=== PATIENT | male | born 1965 | race Caucasian/White ===

== ENCOUNTER 2021-09-18 17:29 | Emergency (ER) | payer MEDICAID, SELFPAY ==
[2021-09-18 17:32] VITALS: BP 176/98; PULSE 58; RESP 18; TEMP 36.4; O2SAT 97; BMI 33.5
--- NOTE | 2021-09-18 20:34 | ED.ABDPAIN ---
HPI - Abdominal Pain General Chief Complaint: Abdominal Pain Stated Complaint: abd pain Time Seen by Provider: 09/18/21 20:31 Source: patient Mode of arrival: ambulatory Limitations: no limitations History of Present Illness HPI narrative: Patient with No significant past medical history had heavy meal shrimps and pasta last night since then complaining of pain in epigastric area with vomiting and diarrhea patient daughter was also sick 2 days ago no fever or chills patient been vaccinated against COVID-19 no radiation of pain to the back no history of alcohol use no history of pancreatitis in the past Related Data Previous Rx's Medication Instructions Recorded ondansetron 4 mg disintegrating 4 mg PO Q6-8H PRN #7 tab 09/18/21 tablet Allergies Allergy/AdvReac Type Severity Reaction Status Date / Time No Known Allergies Allergy Unverified 07/27/20 15:00 [No Known Allergies*] Review of Systems Review of Systems Yes all other systems are reviewed and are negative Physical Exam Vital Signs: Vital Signs: Last Vital Signs Temp 98.9 F 09/18/21 22:31 Pulse 86 09/18/21 22:31 Resp 18 09/18/21 22:31 BP 127/81 09/18/21 22:31 Pulse Ox 98 09/18/21 22:31 Body Mass Index 33.5 Appearance: Alert. Oriented X3. No acute distress. Eyes: No pallor or icterus ENT: Pharynx normal. Oral Mucosa moist Neck: Normal inspection. Neck supple. CVS: Normal heart rate and rhythm. Pulses normal. Respiratory: No respiratory distress. Equal air entry bilateral, no wheezing/rales/rhonchi Abdomen: Soft , mild epigastric tenderness, Bowel sounds are present, no mass palpable, no CVA tenderness Skin: Skin warm and dry. Normal skin color. Normal skin turgor. Extremities: No lower extremity edema. No calf tenderness Neuro: Oriented X 3. MDM - Abdominal Pain Lab Data Attestation: I reviewed the patient's lab results. Result diagrams: 09/18/21 20:43 09/18/21 20:43 Labs: Lab Results 09/18/21 09/18/21 09/18/21 Range/Units 20:43 20:43 21:06 WBC 15.9 H (4.8-10.8) X10*3/uL RBC 5.52 (4.60-5.80) X10*6/uL Hgb 16.9 (14.0-18.0) g/dl Hct 49.8 (42.0-52.0) % MCV 90.2 (80.0-98.0) fL MCH 30.6 (27.0-33.0) pg MCHC 33.9 (31.0-36.0) g/dl RDW 12.4 (11.0-16.0) % Plt Count 264 (160-400) X10*3/uL MPV 10.9 (9.4-12.4) fL Immature Gran % (Auto) 0.4 (0.0-0.4) % Neut % (Auto) 78.1 H (45-73) % Lymph % (Auto) 14.6 L (20-40) % [place] % (Auto) 6.6 (2-11) % Eos % (Auto) 0.1 (0-4) % Baso % (Auto) 0.2 (0-2) % Lymph # (Auto) 2.3 (1.2-4.9) X10*3/uL [place] # (Auto) 1.1 (0.1-1.2) X10*3/uL Eos # (Auto) 0.0 (0.0-0.4) X10*3/uL Baso # (Auto) 0.0 (0.0-0.2) X10*3/uL Abs Immat Gran (auto) 0.07 H (0.00-0.03) X10*3/uL Absolute Neuts (auto) 12.4 H (2.0-8.3) x10*3/uL Absolute Nucleated RBC 0.000 (0.0-0.012) X10*3/uL Nucleated RBC % (auto) 0.0 (0.0-0.2) /100WBC Sodium 137 (135-145) mmol/L Potassium 4.1 (3.3-5.1) mmol/L Chloride 101 (96-108) mmol/L Carbon Dioxide 27 (22-29) mmol/L Anion Gap 13 (12-20) BUN 9 (9-16) mg/dL Creatinine 0.92 (0.5-1.4) mg/dL Estim Creat Clear Calc 87.8 Estimated GFR > 60 Random Glucose 121 H (60-115) mg/dL Calcium 10.0 (8.4-10.2) mg/dL Total Bilirubin 0.9 (0.0-1.0) mg/dL AST 14 (5-37) U/L ALT 29 (0-40) U/L Alkaline Phosphatase 83 (39-117) U/L Total Protein 8.2 H (6.5-8.0) g/dL Albumin 4.8 (3.5-5.0) g/dL Lipase 12 (8-78) U/L Urine Color DK YELLOW Urine Appearance HAZY Urine pH 6.0 (5.0-8.0) Ur Specific [place] >= 1.030 H (1.005-1.025) Urine Protein 1+ H (NEG-TRACE) MG/DL Urine Glucose (UA) NEG (NEG) MG/DL Urine Ketones NEG (NEG) MG/DL Urine Blood 1+ H (NEG) Urine Nitrite NEG (NEG) Ur Leukocyte Esterase NEG (NEG) Urine RBC 1-4 (0) /HPF Urine WBC 0 (0-4) /HPF Ur Squamous Epith Cells 3+ /LPF Amorphous Sediment 2+ /LPF Urine Bacteria 1+ /LPF Urine Mucus 4+ /LPF Discharge Plan Discharge Clinical Impression: Gastroenteritis Patient Disposition: Home, Self-Care Instructions: Gastroenteritis (ED) Additional Instructions: Drink plenty of fluids Medication for nausea as prescribed Follow-up with PCP if not better Prescriptions: New ondansetron 4 mg tablet,disintegrating 4 mg PO Q6-8H PRN (Reason: nausea and vomiting) Qty: 7 RF: 0 Interventions: ED Discharge Assessment Last Done: 09/18/21 22:32 Discharge Date/Time: 09/18/21 22:34 [facility] Past Medical History Medical History Back pain Hypertension Social History Social History Advance Directives: No Advance Directives Information Provided: Yes
[2021-09-18] MEDS: 0.9 % Sodium Chloride 1,000 ML 999 ML IVCONT (20:45)
[2021-09-18] MEDS: Famotidine/PF 20 MG/2 ML VIAL IVPUSH (20:48)
[2021-09-18] MEDS: ondansetron HCL 4 MG/2 ML VIAL IVPUSH (20:48)
[2021-09-18 20:51] VITALS: BP 136/75; PULSE 68; RESP 18; TEMP 37.4; O2SAT 97
[2021-09-18 20:51] LABS: MANUAL DIFF FLAG NO
[2021-09-18 20:52] LABS: Basophils Percent Auto 0.2 % (0-2); Eosinophils Percent Auto 0.1 % (0-4); Hematocrit 49.8 % (42.0-52.0); Hemoglobin 16.9 g/dl (14.0-18.0); Imm Gran Abs Auto 0.07 X10*3/uL (0.00-0.03); Imm Gran Pct Auto 0.4 % (0.0-0.4); Lymphocytes Absolute Auto 2.3 X10*3/uL (1.2-4.9); Lymphocytes Percent Auto 14.6 % (20-40); Mean Corpuscular HGB Conc 33.9 g/dl (31.0-36.0); Mean Corpuscular Hemoglobin 30.6 pg (27.0-33.0); Mean Corpuscular Volume 90.2 fL (80.0-98.0); Mean Platelet Volume 10.9 fL (9.4-12.4); Monocytes Absolute Auto 1.1 X10*3/uL (0.1-1.2); Monocytes Percent Auto 6.6 % (2-11); Neutrophils Absolute Auto 12.4 x10*3/uL (2.0-8.3); Neutrophils Percent Auto 78.1 % (45-73); Platelet Count 264 X10*3/uL (160-400); Red Blood Count 5.52 X10*6/uL (4.60-5.80); Red Cell Distribution Width 12.4 % (11.0-16.0); White Blood Count 15.9 X10*3/uL (4.8-10.8)
[2021-09-18 21:11] LABS: Alanine Aminotransferase 29 U/L (0-40); Albumin Level 4.8 g/dL (3.5-5.0); Alkaline Phosphatase 83 U/L (39-117); Anion Gap 13 (12-20); Aspartate Amino Transferase 14 U/L (5-37); Bilirubin Total 0.9 mg/dL (0.0-1.0); Blood Urea Nitrogen 9 mg/dL (9-16); Carbon Dioxide 27 mmol/L (22-29); Chloride 101 mmol/L (96-108); Creatinine Clr Calc Pharmacy 87.8; Estimated Glomerular Filt Rate > 60; Glucose Random 121 mg/dL (60-115); Lipase 12 U/L (8-78); Potassium 4.1 mmol/L (3.3-5.1); Sodium 137 mmol/L (135-145); Total Protein 8.2 g/dL (6.5-8.0)
[2021-09-18 21:12] LABS: Appearance Urine HAZY; Color Urine DK YELLOW; Glucose Urine UA NEG (NEG); Leukocyte Esterase Urine NEG (NEG); Nitrite Urine NEG (NEG); Specific Gravity - Urine >= 1.030 (1.005-1.025); UACC Culture Trigger NO; Urine Blood 1+ (NEG); Urine Ketones NEG (NEG); Urine Protein 1+ MG/DL (NEG-TRACE)
[2021-09-18 21:17] LABS: Amorphous Sediment Urine 2+ /LPF; Mucus Urine 4+ /LPF; Squamous Epithelial Cell Urine 3+ /LPF
[2021-09-18 21:18] LABS: Bacteria Urine 1+ /LPF; WBC Urine 0 /HPF (0-4)
[2021-09-18] MEDS: Magnesium Hydrox/Alum Hydrox 30 ML ORAL.SUSP PO (22:24)
--- NOTE | 2021-09-18 22:27 | PC.NURSE ---
Pt alert and oriented x4, calm and cooperative. Pt states pain has improved. No nausea/vomiting noted. IV removed. Pt educated on dc. Pt ambulated out of ER.
[2021-09-18 22:31] VITALS: BP 127/81; PULSE 86; RESP 18; TEMP 37.2; O2SAT 98
== END 2021-09-18 22:34 | disposition home or self-care (01) ==
PROVIDERS: Emergency Provider Internal Medicine
DX: K52.9 Noninfective gastroenteritis and colitis, unspecified (principal); R10.13 Epigastric pain; I10 Essential (primary) hypertension
CPT/HCPCS: 36415; 80053; 81001; 83690; 85025; 96361; 96374; 96375; 99284; J2405

== ENCOUNTER 2022-08-08 21:32 | Emergency (ER) | payer MEDICAID, SELFPAY ==
--- NOTE | ~2022-08-08 | CT_ITS ---
EXAMINATION: CT ABDOMEN AND PELVIS WITHOUT CONTRAST CLINICAL INFORMATION: Weight loss and vomiting COMPARISON: 09/20/2019 TECHNIQUE: Multidetector volumetric imaging was performed from the superior aspect of the liver through the pubic symphysis. Sagittal and coronal reformatted images were obtained on the technologist's workstation. This CT examination was performed using dose optimization techniques as appropriate, variously including the following: *Automated exposure control *Adjustment of mA and/or kV according to patient size (this includes techniques or standardized protocols for targeted exams where dose is matched to indication/reason for exam; i.e. extremities or head) *Use of iterative reconstruction technique DLP: 457 mGy-cm FINDINGS: LUNG BASES: The visualized lung bases are unremarkable. LIVER, GALLBLADDER, AND BILIARY TREE: The liver is normal in size, shape, and attenuation. No focal hepatic lesion or biliary ductal dilatation is present. Gallbladder unremarkable. PANCREAS: Unremarkable. SPLEEN: Unremarkable. ADRENAL GLANDS: Unremarkable. KIDNEYS AND URETERS: The kidneys are normal in size, shape, and attenuation. Bilateral benign renal cysts redemonstrated. No follow-up indicated. There is a 2 mm nonobstructive calculus right kidney, and a punctate calculus in the upper pole right kidney. Punctate calculus is present in the upper pole left kidney as well. No ureteral calculi. No hydronephrosis, hydroureter, or perinephric abnormality. BLADDER: Unremarkable. GASTROINTESTINAL TRACT: The small and large bowel are unremarkable. The appendix is unremarkable. ABDOMINAL WALL: No significant hernia is appreciated. LYMPH NODES: Normal. VASCULAR: Aorta is atherosclerotic but normal caliber. PELVIC VISCERA: Unremarkable. OSSEOUS STRUCTURES: Near-complete obliteration of the L5-S1 disc space. No acute or suspicious osseous abnormalities. CT/CT abdomen pelvis wo IV con IMPRESSION: No potential etiology for the patient's symptomatology. Bilateral nonobstructive intrarenal calculi
--- NOTE | 2022-08-08 21:33 | ECG_ITS ---
Test Reason : chest pain Blood Pressure : / mmHG Vent. Rate : 083 BPM Atrial Rate : 083 BPM P-R Int : 130 ms QRS Dur : 092 ms QT Int : 362 ms P-R-T Axes : 031 017 044 degrees QTc Int : 425 ms Normal sinus rhythm Possible Left atrial enlargement Borderline ECG When compared with ECG of 18-APR-2020 16:57, No significant change was found Referred By: Generic ED Physician Electronically Signed By:SMILEY JONES
[2022-08-08 21:34] VITALS: BP 136/91; PULSE 88; RESP 18; TEMP 37; O2SAT 99; BMI 30.9
[2022-08-08 21:45] LABS: MANUAL DIFF FLAG NO
[2022-08-08 21:47] LABS: Basophils Percent Auto 0.2 % (0-2); Hematocrit 48.1 % (42.0-52.0); Hemoglobin 16.2 g/dl (14.0-18.0); Imm Gran Abs Auto 0.09 X10*3/uL (0.00-0.03); Imm Gran Pct Auto 0.5 % (0.0-0.4); Lymphocytes Absolute Auto 2.5 X10*3/uL (1.2-4.9); Mean Corpuscular HGB Conc 33.7 g/dl (31.0-36.0); Mean Corpuscular Volume 89.1 fL (80.0-98.0); Mean Platelet Volume 10.4 fL (9.4-12.4); Monocytes Absolute Auto 1.5 X10*3/uL (0.1-1.2); Monocytes Percent Auto 8.1 % (2-11); Neutrophils Percent Auto 77.2 % (45-73); Platelet Count 287 X10*3/uL (160-400); Red Cell Distribution Width 12.4 % (11.0-16.0); White Blood Count 18.2 X10*3/uL (4.8-10.8)
[2022-08-08 22:02] LABS: Alanine Aminotransferase 22 U/L (0-40); Albumin Level 4.8 g/dL (3.5-5.0); Alkaline Phosphatase 79 U/L (39-117); Anion Gap 21 (12-20); Aspartate Amino Transferase 12 U/L (5-37); Bilirubin Direct 0.2 mg/dL (0.0-0.5); Bilirubin Total 0.7 mg/dL (0.0-1.0); Blood Urea Nitrogen 11 mg/dL (9-16); Calcium 10.1 mg/dL (8.4-10.2); Carbon Dioxide 22 mmol/L (22-29); Chloride 107 mmol/L (96-108); Creatinine Clr Calc Pharmacy 53.7; Estimated Glomerular Filt Rate 49; Glucose Random 107 mg/dL (60-115); Lipase 11 U/L (8-78); Potassium 3.6 mmol/L (3.3-5.1); Sodium 146 mmol/L (135-145); Total Protein 8.1 g/dL (6.5-8.0)
[2022-08-08 22:07] LABS: Troponin-I High Sensitivity < 3.5 ng/L (<3.5-35.0)
--- NOTE | 2022-08-09 00:01 | ED_ITS ---
HPI - Nausea/Vomiting/Diarrhea General Chief complaint: Chest Pain Stated complaint: cp Time Seen by Provider: 08/08/22 23:49 Source: patient Mode of arrival: ambulatory History of Present Illness HPI Narrative: Patient's history of heroin abuse snort uses only 1 or 2 bags a day. Taking for last 2 weeks been nauseated not eating much since then took 1 bag 1 week ago again feel nauseated does not feel hungry lost about 8 lb no focal abdominal pain today patient had multiple vomiting after eating some shrimp syncopized after vomiting. Having chills no fever Related Data Previous Rx's Medication Instructions Recorded ondansetron 4 mg disintegrating 4 mg PO Q6-8H PRN nausea and 09/18/21 tablet vomiting #7 tabs ondansetron 4 mg disintegrating 4 mg PO Q6-8H PRN Nausea And 08/09/22 tablet Vomiting #10 tabs Allergies Allergy/AdvReac Type Severity Reaction Status Date / Time No Known Allergies Allergy Unverified 07/27/20 15:00 [No Known Allergies*] Review of Systems Review of Systems: Yes all other systems are reviewed and are negative ON LICENSE OF [facility] Past Medical History Medical History Back pain Hypertension Social History Social History Advance Directives: No Advance Directives Information Provided: No Physical Exam Vital Signs: Vital Signs: Last Vital Signs Temp 99 F 08/09/22 02:00 Pulse 72 08/09/22 02:00 Resp 16 08/09/22 02:00 BP 124/76 08/09/22 02:00 Pulse Ox 99 08/09/22 02:00 O2 Del Method 08/09/22 02:00 BMI result Body Mass Index 30.9 Appearance: Alert. Oriented X3. No acute distress. Eyes: PERRLA, No Nystagmus ENT: Pharynx normal. Oral Mucosa dry Neck: Normal inspection. Neck supple. CVS: Normal heart rate and rhythm. Pulses normal. Respiratory: No respiratory distress. Equal air entry bilateral, no wheezing/rales/rhonchi Abdomen: Soft , No focal tenderness or rebound tenderness or guarding Bowel sounds are present, no mass palpable, no CVA tenderness Skin: Skin warm and dry. Normal skin color. Normal skin turgor. Extremities: No lower extremity edema. No calf tenderness Neuro: Oriented X 3. No motor deficit. No sensory deficit.No cerebellar signs , cranial nerves II-XII intact MDM - Nausea/Vomiting/Diarrhea MDM Narrative Medical decision making narrative: Patient with poor oral intake with leukocytosis no source of infection likely from dehydration patient received IV fluids taking p.o. fluids feeling much better CT scan abdomen negative patient advised to follow with PCP for LUMA and recheck on WBC count and report to the ER if high fever or chills Lab Data Attestation: I reviewed the patient's lab results. Result diagrams: 08/08/22 21:40 08/08/22 21:40 Labs: Lab Results 08/08/22 08/08/22 08/08/22 Range/Units 21:40 21:40 21:40 WBC 18.2 H (4.8-10.8) X10*3/uL RBC 5.40 (4.60-5.80) X10*6/uL Hgb 16.2 (14.0-18.0) g/dl Hct 48.1 (42.0-52.0) % MCV 89.1 (80.0-98.0) fL MCH 30.0 (27.0-33.0) pg MCHC 33.7 (31.0-36.0) g/dl RDW 12.4 (11.0-16.0) % Plt Count 287 (160-400) X10*3/uL MPV 10.4 (9.4-12.4) fL Immature Gran % (Auto) 0.5 H (0.0-0.4) % Neut % (Auto) 77.2 H (45-73) % Lymph % (Auto) 14.0 L (20-40) % [place] % (Auto) 8.1 (2-11) % Eos % (Auto) 0.0 (0-4) % Baso % (Auto) 0.2 (0-2) % Lymph # (Auto) 2.5 (1.2-4.9) X10*3/uL [place] # (Auto) 1.5 H (0.1-1.2) X10*3/uL Eos # (Auto) 0.0 (0.0-0.4) X10*3/uL Baso # (Auto) 0.0 (0.0-0.2) X10*3/uL Abs Immat Gran (auto) 0.09 H (0.00-0.03) X10*3/uL Absolute Neuts (auto) 14.0 H (2.0-8.3) x10*3/uL Absolute Nucleated RBC 0.000 (0.0-0.012) X10*3/uL Nucleated RBC % (auto) 0.0 (0.0-0.2) /100WBC Sodium 146 H (135-145) mmol/L Potassium 3.6 (3.3-5.1) mmol/L Chloride 107 (96-108) mmol/L Carbon Dioxide 22 (22-29) mmol/L Anion Gap 21 H (12-20) BUN 11 (9-16) mg/dL Creatinine 1.48 H (0.5-1.4) mg/dL Estim Creat Clear Calc 53.7 Estimated GFR 49 Random Glucose 107 (60-115) mg/dL Calcium 10.1 (8.4-10.2) mg/dL Total Bilirubin 0.7 (0.0-1.0) mg/dL Direct Bilirubin 0.2 (0.0-0.5) mg/dL AST 12 (5-37) U/L ALT 22 (0-40) U/L Alkaline Phosphatase 79 (39-117) U/L Troponin I High Sens < 3.5 (<3.5-35.0) ng/L Total Protein 8.1 H (6.5-8.0) g/dL Albumin 4.8 (3.5-5.0) g/dL Lipase 11 (8-78) U/L Discharge Plan Discharge Clinical Impression: Acute nausea with nonbilious vomiting Patient Disposition: Home, Self-Care Instructions: Acute Nausea and Vomiting (ED) Additional Instructions: Drink plenty of fluids Nausea medication as prescribed Follow with PCP if not better Prescriptions: New ondansetron 4 mg tablet,disintegrating 4 mg PO Q6-8H PRN (Reason: Nausea And Vomiting) Qty: 10 0RF No Action ondansetron 4 mg tablet,disintegrating 4 mg PO Q6-8H PRN (Reason: nausea and vomiting) Qty: 7 0RF Interventions: ED Discharge Assessment Last Done: 09/30/22 02:34 Discharge Date/Time: 08/09/22 02:35
[2022-08-09 00:08] VITALS: BP 147/91; PULSE 80; RESP 17; TEMP 37.1; O2SAT 100
[2022-08-09] MEDS: 0.9 % Sodium Chloride 1,000 ML 999 ML IV (01:17)
[2022-08-09] MEDS: ondansetron HCL 4 MG/2 ML VIAL IVPUSH (01:17)
[2022-08-09] MEDS: Famotidine/PF 20 MG/2 ML VIAL IVPUSH (01:17)
[2022-08-09 02:00] VITALS: BP 124/76; PULSE 72; RESP 16; TEMP 37.2; O2SAT 99
== END 2022-08-09 02:35 | disposition home or self-care (01) ==
PROVIDERS: Emergency Provider Internal Medicine
DX: R07.89 Other chest pain (principal); R11.2 Nausea with vomiting, unspecified; Z79.899 Other long term (current) drug therapy
CPT/HCPCS: 36415; 74176; 80053; 82248; 83690; 84484; 85025; 93005; 96374; 96375; 99284; J2405

== ENCOUNTER 2022-09-25 07:02 | Emergency (ER) | payer MEDICAID, SELFPAY ==
--- NOTE | ~2022-09-25 | CT_ITS ---
EXAMINATION: CT abdomen pelvis wo IV con CLINICAL INFORMATION: Reason for Exam Right flank, RLQ pain, R/O appy, kidney stone COMPARISON: Multiple prior CTs most recent July 2022 TECHNIQUE: Multidetector volumetric imaging was performed from the superior aspect of the liver through the pubic symphysis noncontrasted study. Sagittal and coronal reformatted images were obtained on the technologist's workstation. This CT examination was performed using dose optimization techniques as appropriate, variously including the following: *Automated exposure control *Adjustment of mA and/or kV according to patient size (this includes techniques or standardized protocols for targeted exams where dose is matched to indication/reason for exam; i.e. extremities or head) *Use of iterative reconstruction technique DLP: 490 mGy-cm FINDINGS: LOWER THORAX: Included lung bases are clear. HEPATOBILIARY: Liver is homogeneous, evaluation of the liver is limited on noncontrast CT, top normal in size measure up to 22.4 cm. GALLBLADDER: Gallbladder unremarkable. SPLEEN: Spleen is normal in size. PANCREAS: No focal mass or ductal dilatation. STOMACH AND GASTROINTESTINAL TRACT: Stomach is grossly unremarkable. There is no bowel distention or thickening. No CT evidence of appendicitis. ADRENALS: No adrenal nodules. KIDNEYS/URETERS: There is moderate to severe right renal hydronephrosis and hydroureter, there is 3 mm obstructing stone at the right ureteral vesicular junction. Mild perinephric fat stranding around the right kidney suggesting high degree obstruction. In addition there are bilateral tiny nonobstructing kidney stones 2 mm nonobstructing stone upper calyx right kidney, 3 mm nonobstructing stone upper calyx left kidney, URINARY BLADDER: Partially decompressed. PELVIC VISCERA: Bilateral small inguinal hernias containing fat only. No bowels, PERITONEUM: No free air or fluid. LYMPH NODES: No lymphadenopathy. VASCULAR:Abdominal aorta normal in size, no aneurysm found. BONES, ABDOMINAL WALL AND SOFT TISSUES: Age-appropriate changes of the spine and skeletal system, no destructive osteolytic or osteosclerotic bone lesion found CT/CT abdomen pelvis wo IV con IMPRESSION: 1. Moderate to severe right renal hydronephrosis and hydroureter, there is a 3 mm obstructing stone at the right UVJ junction. Mild perinephric fat stranding around the right kidney suggesting high degree obstruction. 2. Bilateral tiny nonobstructing kidney stones. 3. Bilateral small inguinal hernias containing fat only.
[2022-09-25 07:09] VITALS: BP 191/100; PULSE 59; RESP 18; TEMP 36.3; O2SAT 99; BMI 31.8
[2022-09-25 07:58] LABS: MANUAL DIFF FLAG NO
[2022-09-25 08:05] LABS: Basophils Absolute Auto 0.1 X10*3/uL (0.0-0.2); Basophils Percent Auto 0.4 % (0-2); Eosinophils Absolute Auto 0.1 X10*3/uL (0.0-0.4); Eosinophils Percent Auto 0.3 % (0-4); Hematocrit 49.2 % (42.0-52.0); Hemoglobin 16.3 g/dl (14.0-18.0); Imm Gran Abs Auto 0.11 X10*3/uL (0.00-0.03); Imm Gran Pct Auto 0.6 % (0.0-0.4); Lymphocytes Absolute Auto 2.7 X10*3/uL (1.2-4.9); Lymphocytes Percent Auto 14.8 % (20-40); Mean Corpuscular HGB Conc 33.1 g/dl (31.0-36.0); Mean Corpuscular Hemoglobin 30.2 pg (27.0-33.0); Mean Corpuscular Volume 91.1 fL (80.0-98.0); Mean Platelet Volume 10.9 fL (9.4-12.4); Monocytes Absolute Auto 1.4 X10*3/uL (0.1-1.2); Monocytes Percent Auto 7.5 % (2-11); Neutrophils Absolute Auto 13.9 x10*3/uL (2.0-8.3); Neutrophils Percent Auto 76.4 % (45-73); Platelet Count 272 X10*3/uL (160-400); White Blood Count 18.2 X10*3/uL (4.8-10.8)
[2022-09-25 08:06] LABS: Appearance Urine Clear; Color Urine Yellow; Glucose Urine UA 100 mg/dL (Negative); Leukocyte Esterase Urine Negative (Negative); Nitrite Urine Negative (Negative); PH 6.5 (5.0-9.0); UMIC TRIGGER UACC YES; Urine Blood Large (3+) (Negative); Urine Ketones Negative (Negative); Urine Protein Trace mg/dL (Neg-Trace)
[2022-09-25 08:18] LABS: Bacteria Urine None Seen (None Seen); Hyaline Casts Urine 0-2 /LPF (0-2); RBC Urine >20 /HPF (0-2); Squamous Epithelial Cell Urine 0-2 /HPF (0-2); WBC Urine 0-5 /HPF (0-5)
[2022-09-25] MEDS: ondansetron HCL 4 MG/2 ML VIAL IVPUSH (08:18)
[2022-09-25 08:27] LABS: Alanine Aminotransferase 23 U/L (0-40); Albumin Level 4.4 g/dL (3.5-5.0); Alkaline Phosphatase 86 U/L (39-117); Anion Gap 17 (12-20); Aspartate Amino Transferase 16 U/L (5-37); Bilirubin Direct < 0.2 mg/dL (0.0-0.5); Bilirubin Total 0.3 mg/dL (0.0-1.0); Blood Urea Nitrogen 14 mg/dL (9-16); Carbon Dioxide 24 mmol/L (22-29); Chloride 106 mmol/L (96-108); Creatinine Clr Calc Pharmacy 77.1; Estimated Glomerular Filt Rate > 60; Glucose Random 108 mg/dL (60-115); Lipase 13 U/L (8-78); Potassium 4.1 mmol/L (3.3-5.1); Sodium 143 mmol/L (135-145); Total Protein 7.7 g/dL (6.5-8.0)
--- NOTE | 2022-09-25 08:32 | ED_ITS ---
HPI - Abdominal Pain General Chief Complaint: Abdominal Pain Stated Complaint: pain in side Time Seen by Provider: 09/25/22 07:48 Source: patient Mode of arrival: ambulatory Limitations: language barrier (Patient speaks [place] only, high school guidance counselor used) History of Present Illness HPI narrative: 56-year-old male who presents emergency department for evaluation of right- sided flank pain and right lower quadrant pain. The patient states the pain started suddenly 2 days prior. He states that the pain is an intermittent throbbing pain. He states that the pain is 10/10 at its worst. Patient states that he had nausea with 1 episode of vomiting today. He denied fever, chills, rhinorrhea, sore throat, cough, chest pain. This is the patient's 1st episode of this type of pain. MD elicited complaint: abdominal pain Pertinent past history: none Onset (ago): day(s) (2) Pain Consistency: intermittent Location: RLQ and R flank Severity: severe Pain scale (0-10): 10 Quality: other (Throbbing) Radiation: none Migration to: no migration Exacerbating factors: nothing Relieving factors: nothing Associated symptoms: nausea and vomiting Related Data Previous Rx's Medication Instructions Recorded ondansetron 4 mg disintegrating 4 mg PO Q6-8H PRN nausea and 09/18/21 tablet vomiting #7 tabs ondansetron 4 mg disintegrating 4 mg PO Q6-8H PRN Nausea And 08/09/22 tablet Vomiting #10 tabs morphine 15 mg immediate release 15 mg PO Q4-6H PRN pain #14 tabs 09/25/22 tablet tamsulosin 0.4 mg capsule (Flomax) 0.4 mg PO DAILY #14 caps 09/25/22 Allergies Allergy/AdvReac Type Severity Reaction Status Date / Time No Known Allergies Allergy Unverified 07/27/20 15:00 [No Known Allergies*] Review of Systems Review of Systems Yes all other systems are reviewed and are negative [facility] Past Medical History [facility] Narrative: Past medical history: Reviewed below, anxiety. Past surgical history: None. Past social history: The patient states that he smokes 6-10 cigarettes per year for 43 years. Patient states he occasionally drinks alcohol. The patient does use heroin, he states that he uses it intranasally and last used 2 weeks prior. He states that when he uses he often inhalers 1 bag. Medical History Back pain Hypertension Social History Social History Advance Directives: No Physical Exam ED Vital Signs: Vital Signs - 24 hr 09/25/22 07:09 09/25/22 10:29 Temperature 97.4 F 98.8 F Pulse Rate 59 63 Respiratory Rate 18 18 Blood Pressure 191/100 H 169/82 H Pulse Oximetry 99 96 Oxygen Delivery Method Room Air Room Air BMI result Body Mass Index 31.8 Const General: cooperative and no acute distress Orientation/consciousness: oriented to person and oriented to place Limitations: no limitations HENMT Head: Yes normal to inspection, Yes normocephalic and Yes atraumatic Ears: external ears normal General nose exam: Normal external nose present Face and sinus: Yes normal facial exam Mouth: Normal oral and palatal mucosa present Throat: Yes posterior oropharynx normal Eyes General: appearance normal, both eyes and all related structures Pupils: Equal, round and reactive pupils present Neck Neck: Yes normal visual inspection, Yes no lymphadenopathy, Yes trachea midline and Yes supple Chest Chest palpation & inspection: normal inspection of the chest and normal palpation of entire chest wall Resp Effort & Inspection: normal respiratory effort and able to speak in complete sentences Auscultation: clear to auscultation bilaterally Cardio Rate: regular rate Rhythm: regular rhythm Heart sounds: S1 normal heart sound present, S2 normal heart sound present and no murmurs GI Inspection: Yes normal to inspection Palpation (GI): Soft to palpation, Tenderness to palpation present (GI) in the RLQ (Moderate) and no guarding Auscultation: normal bowel sounds General: Yes CVA tenderness on the right (Moderate) Back/Spine/Pelvis Back: CVA tenderness Skin General skin exam: no rashes or lesions noted Neuro General: oriented to person and oriented to place Cranial nerves: Yes CN's II-XII intact bilaterally and Yes Equal, round and reactive pupils present Cognition (Neuro): normal cognition Motor exam (neuro): 5/5 motor strength present throughout Extrem General: Yes normal to inspection Psych Appearance: grossly normal Speech and movement: Normal speech and movement present Affect: normal affect Attitude: cooperative Thought process: Normal thought process present Thought content: Normal thought content present Course Course Course Narrative: 56-year-old male who presents emergency department for evaluation of 2 days of right flank and right lower quadrant pain, the pain is intermittent, pain came on suddenly was severe at onset and the pain has been 10/10. The patient's blood pressure was elevated at 190 1/100, this is most likely secondary to pain. Patient's physical examination did reveal moderate right CVA tenderness and moderate right lower quadrant tenderness. I did order laboratory evaluation, CT scan of the abdomen pelvis without IV contrast. Patient's pain was treated with Toradol 15 mg IV and his nausea was treated with Zofran 4 mg IV. 0949: Patient's laboratory evaluation [place] [address], he has had similar elevations in the past, this could be secondary to his pain. Urinalysis was positive for blood microscopic revealed greater than 20 RBCs per high-power field. Patient's pain improved initially with the above treatment, he required a 2nd dose of Toradol 15 mg IV. 1106: Patient's pain however return to then required another dose of morphine [address] scan did reveal a 3 mm right ureteral stone at the UVJ causing obstruction. Patient had other incidental findings including bilateral kidney stones and bilateral swelling will hernias. I did discuss these findings with the patient. The patient will be discharged home . He is advised to take Tylenol ibuprofen for pain and for pain not relieved by these medications was prescribed morphine. He was also started on Flomax. Patient will need to follow-up with our urologist. Medications Administered Discontinued Medications Generic Name Dose Route Start Last Admin Trade Name Freq PRN Reason Stop Dose Admin Sodium Chloride 1,000 mls @ 999 mls/hr 09/25/22 08:22 09/25/22 08:35 Ns IV 09/25/22 09:22 999 mls/hr .Q1H1M STA Administration Ketorolac Tromethamine 15 mg 09/25/22 08:22 09/25/22 08:35 Ketorolac Tromethamine 15 Mg/Ml Vial IVPUSH 09/25/22 08:23 15 mg ONCE STA Administration Ketorolac Tromethamine 15 mg 09/25/22 09:43 09/25/22 10:00 Ketorolac Tromethamine 15 Mg/Ml Vial IVPUSH 09/25/22 09:44 15 mg ONCE STA Administration Ondansetron HCl 4 mg 09/25/22 08:12 09/25/22 08:18 Ondansetron Hcl 4 Mg/2 Ml Vial IVPUSH 09/25/22 08:13 4 mg ONCE ONE Administration Ondansetron HCl 4 mg 09/25/22 08:22 09/25/22 08:36 Ondansetron Hcl 4 Mg/2 Ml Vial IVPUSH 09/25/22 08:23 Not Given ONCE ONE MDM - Abdominal Pain Lab Data Result diagrams: 09/25/22 07:52 09/25/22 07:52 Labs: Lab Results 09/25/22 09/25/22 09/25/22 Range/Units 07:52 07:52 07:52 WBC 18.2 H (4.8-10.8) X10*3/uL RBC 5.40 (4.60-5.80) X10*6/uL Hgb 16.3 (14.0-18.0) g/dl Hct 49.2 (42.0-52.0) % MCV 91.1 (80.0-98.0) fL MCH 30.2 (27.0-33.0) pg MCHC 33.1 (31.0-36.0) g/dl RDW 13.0 (11.0-16.0) % Plt Count 272 (160-400) X10*3/uL MPV 10.9 (9.4-12.4) fL Immature Gran % (Auto) 0.6 H (0.0-0.4) % Neut % (Auto) 76.4 H (45-73) % Lymph % (Auto) 14.8 L (20-40) % [place] % (Auto) 7.5 (2-11) % Eos % (Auto) 0.3 (0-4) % Baso % (Auto) 0.4 (0-2) % Lymph # (Auto) 2.7 (1.2-4.9) X10*3/uL [place] # (Auto) 1.4 H (0.1-1.2) X10*3/uL Eos # (Auto) 0.1 (0.0-0.4) X10*3/uL Baso # (Auto) 0.1 (0.0-0.2) X10*3/uL Abs Immat Gran (auto) 0.11 H (0.00-0.03) X10*3/uL Absolute Neuts (auto) 13.9 H (2.0-8.3) x10*3/uL Absolute Nucleated RBC 0.000 (0.0-0.012) X10*3/uL Nucleated RBC % (auto) 0.0 (0.0-0.2) /100WBC Sodium 143 (135-145) mmol/L Potassium 4.1 (3.3-5.1) mmol/L Chloride 106 (96-108) mmol/L Carbon Dioxide 24 (22-29) mmol/L Anion Gap 17 (12-20) BUN 14 (9-16) mg/dL Creatinine 1.01 (0.5-1.4) mg/dL Estim Creat Clear Calc 77.1 Estimated GFR > 60 Random Glucose 108 (60-115) mg/dL Calcium 10.0 (8.4-10.2) mg/dL Total Bilirubin 0.3 (0.0-1.0) mg/dL Direct Bilirubin < 0.2 (0.0-0.5) mg/dL AST 16 (5-37) U/L ALT 23 (0-40) U/L Alkaline Phosphatase 86 (39-117) U/L Total Protein 7.7 (6.5-8.0) g/dL Albumin 4.4 (3.5-5.0) g/dL Lipase 13 (8-78) U/L Urine Color Yellow Urine Appearance Clear Urine pH 6.5 (5.0-9.0) Ur Specific [place] 1.020 (1.005-1.025) Urine Protein Trace (Neg-Trace) mg/dL Urine Glucose (UA) 100 H (Negative) mg/dL Urine Ketones Negative (Negative) mg/dL Urine Blood Large (3+) H (Negative) Urine Nitrite Negative (Negative) Ur Leukocyte Esterase Negative (Negative) Urine RBC >20 H (0-2) /HPF Urine WBC 0-5 (0-5) /HPF Ur Squamous Epith Cells 0-2 (0-2) /HPF Urine Bacteria None Seen (None Seen) Hyaline Casts 0-2 (0-2) /LPF Discharge Plan Discharge Clinical Impression: Colic, ureteral, Right distal ureteral calculus, Calculus of both kidneys Patient Disposition: Home, Self-Care Instructions: Kidney Stones (ED), How to Strain Your Urine (ED) Additional Instructions: The CT scan of your abdomen pelvis without IV contrast revealed a 3 mm stone in the right ureter (i the tube that connects the kidney to the bladder). This stone is very close the bladder and you have almost passed it. It sometimes takes several weeks to pass the stone. Drink lots of water and urinate frequently. Strain your urine to see if you can catch the stone Take Flomax (tamsulosin) 0.4 mg once a day for the next 2 weeks or until you pass the stone. This medication helps relax the ureter and may help you pass the stone sooner. Take ibuprofen 200 mg pills, 3 pills every 6 hours as needed for pain. Take Tylenol (acetaminophen) 500 mg, 2 pills every 4-6 hours as needed for pain. For pain not relieved by ibuprofen or Tylenol take morphine 15 mg pills, 1 pill every 4 hours as needed for pain. This medication will make you sleepy, do not drive or work while taking this medication. Morphine is a narcotic medication and can be addicting. If you are concerned about addiction you can ask the pharmacist for less pills or do not get this prescription filled. Follow-up with our urologist on-call within 1-2 weeks Please return to the emergency department if your symptoms get worse or if you develop any symptoms that are concerning to you. Prescriptions: New tamsulosin [Flomax] 0.4 mg capsule 0.4 mg PO DAILY Qty: 14 0RF morphine 15 mg tablet 15 mg PO Q4-6H PRN (Reason: pain) Qty: 14 0RF Rx Instructions: Patient may request partial fill; Partial Fill upon patient request. No Action ondansetron 4 mg tablet,disintegrating 4 mg PO Q6-8H PRN (Reason: nausea and vomiting) Qty: 7 0RF ondansetron 4 mg tablet,disintegrating 4 mg PO Q6-8H PRN (Reason: Nausea And Vomiting) Qty: 10 0RF Referrals: Samir Caraballo MD [Physician] - 2 weeks (3 mm obstructing right UVJ calculus, multiple bilateral renal calculi)
[2022-09-25] MEDS: 0.9 % Sodium Chloride 1,000 ML 999 ML IV (08:35)
[2022-09-25] MEDS: Ketorolac Tromethamine 15 MG/ML VIAL IVPUSH ×2 (08:35→10:00)
[2022-09-25 10:29] VITALS: BP 169/82; PULSE 63; RESP 18; TEMP 37.1; O2SAT 96
[2022-09-25] MEDS: Morphine Sulfate 4 MG/ML CARTRIDGE IVPUSH (11:18)
[2022-09-25 11:49] VITALS: BP 144/71; PULSE 77; RESP 19; O2SAT 98
== END 2022-09-25 11:53 | disposition home or self-care (01) ==
PROVIDERS: Emergency Provider Emergency Medicine Emergency Medical Services
DX: N13.2 Hydronephrosis with renal and ureteral calculous obstruction (principal); K40.20 Bilateral inguinal hernia, without obstruction or gangrene, not specified as recurrent; R11.2 Nausea with vomiting, unspecified; I10 Essential (primary) hypertension; F17.210 Nicotine dependence, cigarettes, uncomplicated
CPT/HCPCS: 36415; 74176; 80048; 80076; 81001; 81003; 83690; 85025; 96374; 96375; 96376; 99284; J1885; J2270; J2405

== ENCOUNTER 2022-11-14 19:42 | Emergency (ER) | payer MEDICAID, SELFPAY ==
--- NOTE | ~2022-11-14 | XR_ITS ---
EXAMINATION: XR CHEST CLINICAL INFORMATION: Cough. COMPARISON: Chest radiograph 04/18/2020. TECHNIQUE: 2 views of the chest were obtained. FINDINGS: Normal appearance of the cardiomediastinal silhouette. No focal airspace opacity, pleural effusion or pneumothorax. No acute osseous abnormalities. The visualized upper abdomen is within normal limits. XR/XR chest 2V IMPRESSION: No acute cardiopulmonary findings.
[2022-11-14 20:35] VITALS: BP 186/113; PULSE 67; RESP 18; TEMP 36.7; O2SAT 98; BMI 30.1
--- NOTE | 2022-11-14 20:45 | ED_ITS ---
HPI - General Adult General Source: patient Mode of arrival: ambulatory Limitations: no limitations History of Present Illness HPI narrative: 56-year-old male presents with 1 week of headache, fever, vomiting and body aches. Onset (ago): week(s) (1) Radiation: non-radiation Severity: moderate Associated symptoms: cough, fever/chills, headaches, malaise, nausea/vomiting and weakness Treatments prior to arrival: none Related Data Previous Rx's Medication Instructions Recorded ondansetron 4 mg disintegrating 4 mg PO Q6-8H PRN nausea and 09/18/21 tablet vomiting #7 tabs ondansetron 4 mg disintegrating 4 mg PO Q6-8H PRN Nausea And 08/09/22 tablet Vomiting #10 tabs morphine 15 mg immediate release 15 mg PO Q4-6H PRN pain #14 tabs 09/25/22 tablet tamsulosin 0.4 mg capsule (Flomax) 0.4 mg PO DAILY #14 caps 09/25/22 lisinopril 5 mg tablet 5 mg PO DAILY #30 tabs 11/15/22 prednisone 20 mg tablet 20 mg PO DAILY 7 days #7 tabs 11/19/22 tamsulosin 0.4 mg capsule (Flomax) 0.4 mg PO DAILY #14 caps 11/19/22 Allergies Allergy/AdvReac Type Severity Reaction Status Date / Time No Known Allergies Allergy Unverified 07/27/20 15:00 [No Known Allergies*] Review of Systems Review of Systems: Constitutional: positive Fever, positive Chills, positive fatigue, positive Malaise ENT/Mouth: positive sore throat, positive runny nose Eyes: No Discharge Cardiovascular: No Chest Pain, No SOB Respiratory: Positive Cough, No Sputum, No Wheezing, No Dyspnea Gastrointestinal: No Nausea, No Vomiting, No Diarrhea Musculoskeletal: positive Myalgia Skin: No rash Neuro: Positive Headache Yes all other systems are reviewed and are negative PMFSH Past Medical History Attestation statement: The following information was validated with the patient. Source: old records reviewed Medical History Back pain Hypertension Social History Social History Advance Directives: No Advance Directives Information Provided: Yes Physical Exam ED Vital Signs: Vital Signs - 24 hr 11/14/22 20:35 11/14/22 23:13 11/14/22 23:25 Temperature 98.0 F 99.1 F 99.4 F Pulse Rate 67 61 65 Respiratory Rate 18 16 14 Blood Pressure 186/113 H 199/112 H 172/109 H Pulse Oximetry 98 98 99 Oxygen Delivery Method Room Air Room Air Room Air 11/15/22 00:51 Temperature 99.3 F Pulse Rate 64 Respiratory Rate 16 Blood Pressure 179/106 H Pulse Oximetry 97 Oxygen Delivery Method Room Air BMI result Body Mass Index 30.1 Appearance: Alert. Oriented X3. Mild distress. Appears fatigued. Eyes: Pupils equal, round and reactive to light. ENT: Pharynx normal. Neck: Normal inspection. Neck supple. CVS: Normal heart rate and rhythm. Pulses normal. Respiratory: No respiratory distress. Breath sounds normal. Abdomen: Soft and nontender. Skin: Skin warm and dry. Normal skin color. Normal skin turgor. Extremities: No lower extremity edema. Gait well-balanced well coordinated. Neuro: No motor deficit. No sensory deficit. Cranial nerves 2-12 intact. Course Course Course Narrative: 56-year-old male presents for 1 week of upper respiratory symptoms, headache, fever, vomiting, and body aches. Patient tested positive for COVID while in the emergency department waiting room. Patient was provided with Tylenol and Zofran. Patient does have an elevated blood pressure, states that he has had chronically elevated blood pressure for years, does not have a primary care physician and is not on any medications. 00:49 plan of care to discharge home. Will give lisinopril 5 mg for elevated blood pressure, patient has had chronic blood pressure elevation but does not have primary care physician. Will refer to Dr. Ortiz so patient can establish PCP. Patient did ask for stronger medications and Tylenol and Motrin, which I respectfully declined his request. Patient did understand that narcotics are not indicated for viral syndrome. Patient verbalized understanding of and agrees to plan of care discharge home. Verbalized understanding of signs symptoms indicating need for emergent intervention. Medications Administered Discontinued Medications Generic Name Dose Route Start Last Admin Trade Name Freq PRN Reason Stop Dose Admin Acetaminophen 650 mg 11/14/22 23:31 11/14/22 23:37 Acetaminophen 325 Mg Tablet PO 11/14/22 23:32 650 mg ONCE ONE Administration Ondansetron HCl 4 mg 11/14/22 20:45 11/14/22 23:26 Ondansetron Odt 4 Mg Tab.Umudis TRANSLINGU 11/14/22 20:46 4 mg ONCE ONE Administration Medical Decision Making Differential Diagnosis Differential Diagnoses: The differential diagnosis associated with the presentation includes Influenza, RSV, COVID, essential hypertension Admission/Observation Consideration of admission/observation: Escalation of care including admission/observation considered Admission not considered for this patient Lab Data MDM Lab Attestation statement: I reviewed the patient's lab results. 11/14/22 20:54 11/14/22 20:54 Labs: Lab Results 11/14/22 11/14/22 11/14/22 Range/Units 20:51 20:54 20:54 WBC 12.7 H (4.8-10.8) X10*3/uL RBC 5.60 (4.60-5.80) X10*6/uL Hgb 16.9 (14.0-18.0) g/dl Hct 48.3 (42.0-52.0) % MCV 86.3 (80.0-98.0) fL MCH 30.2 (27.0-33.0) pg MCHC 35.0 (31.0-36.0) g/dl RDW 11.9 (11.0-16.0) % Plt Count 276 (160-400) X10*3/uL MPV 10.4 (9.4-12.4) fL Immature Gran % (Auto) 0.4 (0.0-0.4) % Neut % (Auto) 77.7 H (45-73) % Lymph % (Auto) 14.2 L (20-40) % [place] % (Auto) 7.5 (2-11) % Eos % (Auto) 0.1 (0-4) % Baso % (Auto) 0.1 (0-2) % Lymph # (Auto) 1.8 (1.2-4.9) X10*3/uL [place] # (Auto) 1.0 (0.1-1.2) X10*3/uL Eos # (Auto) 0.0 (0.0-0.4) X10*3/uL Baso # (Auto) 0.0 (0.0-0.2) X10*3/uL Abs Immat Gran (auto) 0.05 H (0.00-0.03) X10*3/uL Absolute Neuts (auto) 9.9 H (2.0-8.3) x10*3/uL Absolute Nucleated RBC 0.000 (0.0-0.012) X10*3/uL Nucleated RBC % (auto) 0.0 (0.0-0.2) /100WBC Sodium 136 (135-145) mmol/L Potassium 4.0 (3.3-5.1) mmol/L Chloride 98 (96-108) mmol/L Carbon Dioxide 25 (22-29) mmol/L Anion Gap 17 (12-20) BUN 14 (9-16) mg/dL Creatinine 0.75 (0.5-1.4) mg/dL Estim Creat Clear Calc 101.0 Estimated GFR > 60 Random Glucose 129 H (60-115) mg/dL Calcium 10.4 H (8.4-10.2) mg/dL Total Bilirubin 0.5 (0.0-1.0) mg/dL AST 11 (5-37) U/L ALT 15 (0-40) U/L Alkaline Phosphatase 80 (39-117) U/L Total Protein 8.3 H (6.5-8.0) g/dL Albumin 4.8 (3.5-5.0) g/dL Urine Color Urine Appearance Urine pH (5.0-9.0) Ur Specific Lyons (1.005-1.025) Urine Protein (Neg-Trace) mg/dL Urine Glucose (UA) (Negative) mg/dL Urine Ketones (Negative) mg/dL Urine Blood (Negative) Urine Nitrite (Negative) Ur Leukocyte Esterase (Negative) Urine RBC (0-2) /HPF Urine WBC (0-5) /HPF Ur Squamous Epith Cells (0-2) /HPF Urine Bacteria (None Seen) Hyaline Casts (0-2) /LPF Influenza Type A (PCR) NEGATIVE (Negative) Influenza Type B (PCR) NEGATIVE (Negative) RSV RNA Qual (PCR) NEGATIVE (Negative) SARS-CoV-2 RNA (RT-PCR) POSITIVE A (Negative) 11/14/22 Range/Units 20:56 WBC (4.8-10.8) X10*3/uL RBC (4.60-5.80) X10*6/uL Hgb (14.0-18.0) g/dl Hct (42.0-52.0) % MCV (80.0-98.0) fL MCH (27.0-33.0) pg MCHC (31.0-36.0) g/dl RDW (11.0-16.0) % Plt Count (160-400) X10*3/uL MPV (9.4-12.4) fL Immature Gran % (Auto) (0.0-0.4) % Neut % (Auto) (45-73) % Lymph % (Auto) (20-40) % [place] % (Auto) (2-11) % Eos % (Auto) (0-4) % Baso % (Auto) (0-2) % Lymph # (Auto) (1.2-4.9) X10*3/uL [place] # (Auto) (0.1-1.2) X10*3/uL Eos # (Auto) (0.0-0.4) X10*3/uL Baso # (Auto) (0.0-0.2) X10*3/uL Abs Immat Gran (auto) (0.00-0.03) X10*3/uL Absolute Neuts (auto) (2.0-8.3) x10*3/uL Absolute Nucleated RBC (0.0-0.012) X10*3/uL Nucleated RBC % (auto) (0.0-0.2) /100WBC Sodium (135-145) mmol/L Potassium (3.3-5.1) mmol/L Chloride (96-108) mmol/L Carbon Dioxide (22-29) mmol/L Anion Gap (12-20) BUN (9-16) mg/dL Creatinine (0.5-1.4) mg/dL Estim Creat Clear Calc Estimated GFR Random Glucose (60-115) mg/dL Calcium (8.4-10.2) mg/dL Total Bilirubin (0.0-1.0) mg/dL AST (5-37) U/L ALT (0-40) U/L Alkaline Phosphatase (39-117) U/L Total Protein (6.5-8.0) g/dL Albumin (3.5-5.0) g/dL Urine Color Dark Yellow Urine Appearance Cloudy Urine pH 5.5 (5.0-9.0) Ur Specific Lyons >= 1.030 H (1.005-1.025) Urine Protein 300 (3+) H (Neg-Trace) mg/dL Urine Glucose (UA) 100 H (Negative) mg/dL Urine Ketones Negative (Negative) mg/dL Urine Blood Moderate (2+) H (Negative) Urine Nitrite Negative (Negative) Ur Leukocyte Esterase Negative (Negative) Urine RBC 6-10 H (0-2) /HPF Urine WBC 0-5 (0-5) /HPF Ur Squamous Epith Cells 0-2 (0-2) /HPF Urine Bacteria None Seen (None Seen) Hyaline Casts 0-2 (0-2) /LPF Influenza Type A (PCR) (Negative) Influenza Type B (PCR) (Negative) RSV RNA Qual (PCR) (Negative) SARS-CoV-2 RNA (RT-PCR) (Negative) Independent Interpretation I performed an independent interpretation of an: Plain X-Ray Radiology Impression Discussion of test interpretation with radiology: I have reviewed the radiologist's reading. Radiologist Impression: EXAMINATION: XR CHEST CLINICAL INFORMATION: Cough. COMPARISON: Chest radiograph 04/18/2020. TECHNIQUE: 2 views of the chest were obtained. FINDINGS: Normal appearance of the cardiomediastinal silhouette. No focal airspace opacity, pleural effusion or pneumothorax. No acute osseous abnormalities. The visualized upper abdomen is within normal limits. XR/XR chest 2V IMPRESSION: No acute cardiopulmonary findings. External Record Review External record reviewed: Outpatient record Prescription Management I considered prescription management with: Other (Blood pressure medication) Chronic Conditions Patient?s care impacted by: Hypertension Discharge Plan Discharge Clinical Impression: COVID, Hypertension Patient Disposition: Home, Self-Care Instructions: Covid-19 Viral Syndrome and Novel Coronavirus (ED) Hey/Ath, Chronic Hypertension (ED), COVID-19 (Coronavirus Disease 2019) (ED) Additional Instructions: You were evaluated for upper respiratory symptoms. You test positive for COVID- 19. Please continue with supportive measures. Alternate Tylenol 650 mg every 6 hours and Motrin 600 mg every 6 hours as needed for fever and muscle aches. Drink plenty of fluid. I have referred you to Dr. Angel to establish primary care. He may refer you to a different physician. His office is located on [facility] in [facility]. I prescribed lisinopril 5 mg by mouth daily. Take this medication every day for your blood pressure. Thank you for choosing this emergency department for evaluation. Please follow-up with primary care physician as needed. Return to the emergency department for any new, concerning, or worsening symptoms. Prescriptions: New lisinopril 5 mg tablet 5 mg PO DAILY Qty: 30 2RF No Action ondansetron 4 mg tablet,disintegrating 4 mg PO Q6-8H PRN (Reason: nausea and vomiting) Qty: 7 0RF ondansetron 4 mg tablet,disintegrating 4 mg PO Q6-8H PRN (Reason: Nausea And Vomiting) Qty: 10 0RF tamsulosin [Flomax] 0.4 mg capsule 0.4 mg PO DAILY Qty: 14 0RF morphine 15 mg tablet 15 mg PO Q4-6H PRN (Reason: pain) Qty: 14 0RF Rx Instructions: Patient may request partial fill; Partial Fill upon patient request. tamsulosin [Flomax] 0.4 mg capsule 0.4 mg PO DAILY Qty: 14 0RF prednisone 20 mg tablet 20 mg PO DAILY 7 Days Qty: 7 0RF Referrals: Toney Ortiz MD [Physician] - 1 week (Establish primary care) Interventions: ED Discharge Assessment Last Done: 11/15/22 01:11 Discharge Date/Time: 11/15/22 01:11
[2022-11-14 20:57] LABS: MANUAL DIFF FLAG NO
[2022-11-14 21:00] LABS: Basophils Percent Auto 0.1 % (0-2); Eosinophils Percent Auto 0.1 % (0-4); Hematocrit 48.3 % (42.0-52.0); Hemoglobin 16.9 g/dl (14.0-18.0); Imm Gran Abs Auto 0.05 X10*3/uL (0.00-0.03); Imm Gran Pct Auto 0.4 % (0.0-0.4); Lymphocytes Absolute Auto 1.8 X10*3/uL (1.2-4.9); Lymphocytes Percent Auto 14.2 % (20-40); Mean Corpuscular Hemoglobin 30.2 pg (27.0-33.0); Mean Corpuscular Volume 86.3 fL (80.0-98.0); Mean Platelet Volume 10.4 fL (9.4-12.4); Monocytes Percent Auto 7.5 % (2-11); Neutrophils Absolute Auto 9.9 x10*3/uL (2.0-8.3); Neutrophils Percent Auto 77.7 % (45-73); Platelet Count 276 X10*3/uL (160-400); Red Cell Distribution Width 11.9 % (11.0-16.0); White Blood Count 12.7 X10*3/uL (4.8-10.8)
[2022-11-14 21:06] LABS: Appearance Urine Cloudy; Color Urine Dark Yellow; Glucose Urine UA 100 mg/dL (Negative); Leukocyte Esterase Urine Negative (Negative); Nitrite Urine Negative (Negative); PH 5.5 (5.0-9.0); Specific Gravity - Urine >= 1.030 (1.005-1.025); UMIC TRIGGER UACC YES; Urine Blood Moderate (2+) (Negative); Urine Ketones Negative (Negative); Urine Protein 300 (3+) mg/dL (Neg-Trace)
[2022-11-14 21:15] LABS: Bacteria Urine None Seen (None Seen); Hyaline Casts Urine 0-2 /LPF (0-2); Squamous Epithelial Cell Urine 0-2 /HPF (0-2); WBC Urine 0-5 /HPF (0-5)
[2022-11-14 21:17] LABS: Alanine Aminotransferase 15 U/L (0-40); Albumin Level 4.8 g/dL (3.5-5.0); Alkaline Phosphatase 80 U/L (39-117); Anion Gap 17 (12-20); Aspartate Amino Transferase 11 U/L (5-37); Bilirubin Total 0.5 mg/dL (0.0-1.0); Blood Urea Nitrogen 14 mg/dL (9-16); Calcium 10.4 mg/dL (8.4-10.2); Carbon Dioxide 25 mmol/L (22-29); Chloride 98 mmol/L (96-108); Estimated Glomerular Filt Rate > 60; Glucose Random 129 mg/dL (60-115); Sodium 136 mmol/L (135-145); Total Protein 8.3 g/dL (6.5-8.0)
[2022-11-14 21:38] LABS: Influenza A PCR NEGATIVE (Negative); Influenza B PCR NEGATIVE (Negative); Resp Syncy Virus RNA Qual PCR NEGATIVE (Negative); SARS COV2 PCR INHOUSE POSITIVE (Negative)
[2022-11-14 23:13] VITALS: BP 199/112; PULSE 61; RESP 16; TEMP 37.3; O2SAT 98
[2022-11-14 23:25] VITALS: BP 172/109; PULSE 65; RESP 14; TEMP 37.4; O2SAT 99
[2022-11-14] MEDS: Ondansetron ODT 4 MG TAB.RAPDIS TRANSLINGU (23:26)
--- NOTE | 2022-11-14 23:27 | PC.NURSE ---
Pt aox3. Reports traveling to [place] last Friday and developing a headache, fever, and body aches. Reports fever of 103F. At this time oral temp is 99.4F Current BP elevated 172/109 HR 65. Pt reports hx HTN but not taking any medications at this time. MLP aware.
[2022-11-14] MEDS: Acetaminophen 325 MG TABLET 650 MG PO (23:37)
[2022-11-15 00:51] VITALS: BP 179/106; PULSE 64; RESP 16; TEMP 37.4; O2SAT 97
--- NOTE | 2022-11-15 01:11 | PC.NURSE ---
Discharge instructions reviewed with pt. Pt verbalizes understanding.
== END 2022-11-15 01:11 | disposition home or self-care (01) ==
PROVIDERS: Nurse Practitioner Family; Emergency Provider Emergency Medicine
DX: U07.1 COVID-19 (principal); I10 Essential (primary) hypertension; R51.9 Headache, unspecified; R05.9 Cough, unspecified; R11.2 Nausea with vomiting, unspecified; Z79.899 Other long term (current) drug therapy
CPT/HCPCS: 0241U; 36415; 71046; 80053; 81001; 81003; 85025; 99283; 99284

== ENCOUNTER 2022-11-19 10:49 | Emergency (ER) | payer MEDICAID, SELFPAY ==
--- NOTE | ~2022-11-19 | CT_ITS ---
EXAMINATION: CT ABDOMEN AND PELVIS WITHOUT CONTRAST CLINICAL INFORMATION: Evaluate for kidney stone COMPARISON: 09/25/2022 TECHNIQUE: Multidetector volumetric imaging was performed from the superior aspect of the liver through the pubic symphysis. Sagittal and coronal reformatted images were obtained on the technologist's workstation. This CT examination was performed using dose optimization techniques as appropriate, variously including the following: *Automated exposure control *Adjustment of mA and/or kV according to patient size (this includes techniques or standardized protocols for targeted exams where dose is matched to indication/reason for exam; i.e. extremities or head) *Use of iterative reconstruction technique DLP: 476 mGy-cm FINDINGS: LUNG BASES: bilateral basilar atelectasis right greater than left. LIVER, GALLBLADDER, AND BILIARY TREE: The liver is normal in size, shape, and attenuation. No focal hepatic lesion or biliary ductal dilatation is present. The gallbladder is unremarkable with no evidence of radiopaque gallstones, gallbladder wall thickening, or obvious pericholecystic inflammatory changes. PANCREAS: Unremarkable. SPLEEN: Unremarkable. ADRENAL GLANDS: Unremarkable. KIDNEYS AND URETERS: Resolved hydronephrosis on the right. There is mild hydronephrosis now seen on the left. This leads up to a 5 mm 5 x 6 mm calculus in the proximal left ureter. Low-density lesion lower pole right kidney could represent a cyst. An ultrasound to confirm. There is also low density structure in the midpole. Again ultrasound would be recommended. BLADDER: Mildly thick-walled bladder. GASTROINTESTINAL TRACT: The bowel pattern is nonobstructing. The appendix is normal. No free fluid. ABDOMINAL WALL: No significant hernia is appreciated. LYMPH NODES: Normal. VASCULAR: Some atherosclerotic changes are noted. Mild ectasia of the right greater than left iliac PELVIC VISCERA: Unremarkable. OSSEOUS STRUCTURES: Unremarkable. CT/CT abdomen pelvis wo IV con IMPRESSION: Mild hydronephrosis on the left caused by a 5 x 6 mm calculus in the proximal left ureter. Other findings as described above Areas of low density in the right kidney. Ultrasound would be recommended to evaluate for cystic change
[2022-11-19 10:55] VITALS: BP 113/66; PULSE 60; RESP 18; TEMP 36.6; O2SAT 98; BMI 28.3
[2022-11-19 11:26] LABS: MANUAL DIFF FLAG NO
[2022-11-19 11:28] LABS: Basophils Percent Auto 0.3 % (0-2); Eosinophils Percent Auto 0.1 % (0-4); Hematocrit 43.8 % (42.0-52.0); Hemoglobin 15.2 g/dl (14.0-18.0); Imm Gran Abs Auto 0.09 X10*3/uL (0.00-0.03); Imm Gran Pct Auto 0.8 % (0.0-0.4); Lymphocytes Absolute Auto 2.7 X10*3/uL (1.2-4.9); Lymphocytes Percent Auto 24.2 % (20-40); Mean Corpuscular HGB Conc 34.7 g/dl (31.0-36.0); Mean Corpuscular Hemoglobin 30.3 pg (27.0-33.0); Mean Corpuscular Volume 87.3 fL (80.0-98.0); Mean Platelet Volume 10.2 fL (9.4-12.4); Monocytes Absolute Auto 0.9 X10*3/uL (0.1-1.2); Monocytes Percent Auto 8.1 % (2-11); Neutrophils Absolute Auto 7.5 x10*3/uL (2.0-8.3); Neutrophils Percent Auto 66.5 % (45-73); Platelet Count 280 X10*3/uL (160-400); Red Blood Count 5.02 X10*6/uL (4.60-5.80); Red Cell Distribution Width 11.8 % (11.0-16.0); White Blood Count 11.2 X10*3/uL (4.8-10.8)
[2022-11-19 11:30] LABS: Appearance Urine Turbid; Color Urine Yellow; Glucose Urine UA Negative (Negative); Leukocyte Esterase Urine Negative (Negative); Nitrite Urine Negative (Negative); PH 7.5 (5.0-9.0); Specific Gravity - Urine 1.015 (1.005-1.025); UMIC TRIGGER UACC YES; Urine Blood Large (3+) (Negative); Urine Ketones Negative (Negative); Urine Protein Negative (Neg-Trace)
[2022-11-19 11:34] LABS: Bacteria Urine None Seen (None Seen); Hyaline Casts Urine 0-2 /LPF (0-2); RBC Urine >20 /HPF (0-2); Squamous Epithelial Cell Urine 0-2 /HPF (0-2); WBC Urine 0-5 /HPF (0-5)
--- NOTE | 2022-11-19 11:35 | ED_ITS ---
HPI - General Adult General Chief complaint: Abdominal Pain Stated complaint: Kidney stone Time Seen by Provider: 11/19/22 11:35 Source: patient Mode of arrival: ambulatory Limitations: no limitations History of Present Illness HPI narrative: Patient is a 57 year old assigned male at with a history of recent COVID infection and kidney stones presenting to the emergency department today with abdominal pain. Patient states that he has had abdominal pain over the last 2 weeks. Patient denies any dizziness, lightheadedness, abdominal pain, nausea, vomiting, fever, chills, blurry vision, double vision, loss of vision, chest pain, difficulty breathing, shortness of breath, back pain, night sweats, pain with urination, increased urinary frequency, increased urinary urgency, blood in his stool, syncope or a near syncopal episode, recent trauma or falls, bowel incontinence, bladder incontinence, bowel retention, bladder retention, or any other complaints at this time. Patient states that he has had some blood in his urine. Onset (ago): week(s) (2) Location: abdomen Radiation: non-radiation Severity: mild Severity scale (1-10): 4 Quality: dull Pain Consistency: constant Relieving factors: none Exacerbating factors: none Associated symptoms: denies other symptoms Treatments prior to arrival: none Related Data Previous Rx's Medication Instructions Recorded ondansetron 4 mg disintegrating 4 mg PO Q6-8H PRN nausea and 09/18/21 tablet vomiting #7 tabs ondansetron 4 mg disintegrating 4 mg PO Q6-8H PRN Nausea And 08/09/22 tablet Vomiting #10 tabs morphine 15 mg immediate release 15 mg PO Q4-6H PRN pain #14 tabs 09/25/22 tablet tamsulosin 0.4 mg capsule (Flomax) 0.4 mg PO DAILY #14 caps 09/25/22 lisinopril 5 mg tablet 5 mg PO DAILY #30 tabs 11/15/22 prednisone 20 mg tablet 20 mg PO DAILY 7 days #7 tabs 11/19/22 tamsulosin 0.4 mg capsule (Flomax) 0.4 mg PO DAILY #14 caps 11/19/22 Allergies Allergy/AdvReac Type Severity Reaction Status Date / Time No Known Allergies Allergy Unverified 07/27/20 15:00 [No Known Allergies*] Review of Systems Constitutional: Constitutional: Reports no additional constitutional complaints, Denies chills, Denies fever(s) and Denies night sweats Eyes: Eyes: Reports no additional eye complaints, Denies blurry vision, Denies change in vision, Denies diplopia, Denies eye discharge, Denies loss of vision and Denies eye pain ENT: Denies dizziness Cardiovascular: Cardiovascular: Reports no additional cardiovascular complaints, Denies chest pain, Denies lightheadedness, Denies Loss of Consciousness and Denies dyspnea Respiratory: Respiratory: Reports no additional respiratory complaints and Denies dyspnea Gastrointestinal: Gastrointestinal: Reports no additional gastrointestinal complaints, Reports abdominal pain, Denies melena, Denies hematochezia, Denies change in bowel habits and Denies change in stool character Genitourinary: Genitourinary: Reports no additional male genitourinary complaints, Reports hematuria, Denies oliguria, Denies difficulty urinating, Denies dysuria, Denies urinary frequency, Denies urinary hesitancy, Denies urinary incontinence and Denies urinary urgency Musculoskeletal: Musculoskeletal: Reports no additional musculoskeletal complaints, Denies numbness and Denies tingling Neurologic: Denies dizziness, Denies loss of vision, Denies numbness and Denies tingling Psychiatric: Psychiatric: Reports no additional psychiatric complaints Endocrine: Endocrine: Reports no additional endocrine complaints Hematologic/Lymphatic: Hematologic/Lymphatic: Reports no additional hematologic/lymphatic complaints Allergic/Immunologic: Allergic/Immunologic: Reports no additional allergic/immunologic complaints PMFSH Past Medical History Attestation statement: The following information was validated with the patient. Source: old records reviewed and nursing notes reviewed Medical History Back pain Hypertension Social History Social History Advance Directives: No Advance Directives Information Provided: Yes Physical Exam ED Vital Signs: Vital Signs - 24 hr 11/19/22 10:55 11/19/22 13:14 Temperature 98 F Pulse Rate 60 56 Respiratory Rate 18 16 Blood Pressure 113/66 151/82 H Pulse Oximetry 98 98 Oxygen Delivery Method Room Air Room Air BMI result Body Mass Index 28.3 Const General: cooperative, no acute distress, alert and awake Nutritional Appearance: well nourished Orientation/consciousness: patient oriented x3 Limitations: no limitations HENMT Head: Yes normal to inspection and Yes atraumatic Ears: hearing grossly normal bilaterally and external ears normal General nose exam: Normal external nose present, no nasal discharge noted and no epistaxis Face and sinus: Yes normal facial exam, No abrasion and No laceration Mouth: Normal oral and palatal mucosa present, no drooling and no muffled voice Eyes General: appearance normal, both eyes and all related structures Periorbital: periorbital findings normal Eyelids: Yes eyelids normal Conjunctivae: conjunctivae normal Pupils: Equal, round and reactive pupils present EOM: EOMs intact bilaterally Neck Neck: Yes normal visual inspection, Yes full ROM and Yes no lymphadenopathy Chest Chest palpation & inspection: normal inspection of the chest Resp Effort & Inspection: normal respiratory effort and able to speak in complete sentences Auscultation: clear to auscultation bilaterally Cardio Rate: regular rate Rhythm: regular rhythm GI Inspection: Yes normal to inspection Palpation (GI): Soft to palpation, not firm, nontender and no guarding Neuro General: patient oriented x3 and moves all extremities Cranial nerves: Yes Equal, round and reactive pupils present Cognition (Neuro): normal cognition Motor exam (neuro): 5/5 motor strength present throughout Sensory Exam: Normal double simultaneous stimulation for sensation Coordination: [id number] test normal Extrem General: Yes normal to inspection, Yes full ROM and Yes capillary refill normal Psych Appearance: grossly normal Mental Status: mental status grossly normal Affect: normal affect Attitude: cooperative Thought process: Normal thought process present Thought content: Normal thought content present Insight: Good insight present (Psych) Medical Decision Making Medical Decision Making MDM Narrative: Patient is a 57 year old assigned male at with a history of kidney stones and recent COVID-19 infection presenting to the emergency department today with abdominal pain and blood in his urine. Patient's physical exam was unremarkable. Patient's blood work showed a chronically elevated WBC count of 11.2. Patient's urine showed blood but was otherwise unremarkable. Patient's abdominal CT showed mild hydronephrosis on the left caused by a 5x6 mm calculus in the proximal left ureter. I explained my physical exam findings as well as all test results to the patient. I answered all questions asked by the patient. I stressed the importance of the patient taking his medication as prescribed. I stressed the importance of the patient following up with his primary care provider and a urologist. I stressed the importance of the patient returning to the emergency department immediately if his symptoms were to worsen or if he were to develop any dizziness, shortness of breath, difficulty breathing, chest pain, blurry vision, loss of vision, nausea, vomiting, abdominal pain, fever, chills, back pa in, or any other complaints. Patient verbalized agreement and understanding with this treatment plan and discharge. Differential Diagnosis Differential Diagnoses: The differential diagnosis associated with the presentation includes kidney stone, abdominal pain Lab Data MDM Lab Attestation statement: I reviewed the patient's lab results. 11/19/22 11:19 11/19/22 11:19 Labs: Lab Results 11/19/22 11/19/22 11/19/22 Range/Units 11:19 11:19 11:19 WBC 11.2 H (4.8-10.8) X10*3/uL RBC 5.02 (4.60-5.80) X10*6/uL Hgb 15.2 (14.0-18.0) g/dl Hct 43.8 (42.0-52.0) % MCV 87.3 (80.0-98.0) fL MCH 30.3 (27.0-33.0) pg MCHC 34.7 (31.0-36.0) g/dl RDW 11.8 (11.0-16.0) % Plt Count 280 (160-400) X10*3/uL MPV 10.2 (9.4-12.4) fL Immature Gran % (Auto) 0.8 H (0.0-0.4) % Neut % (Auto) 66.5 (45-73) % Lymph % (Auto) 24.2 (20-40) % [place] % (Auto) 8.1 (2-11) % Eos % (Auto) 0.1 (0-4) % Baso % (Auto) 0.3 (0-2) % Lymph # (Auto) 2.7 (1.2-4.9) X10*3/uL [place] # (Auto) 0.9 (0.1-1.2) X10*3/uL Eos # (Auto) 0.0 (0.0-0.4) X10*3/uL Baso # (Auto) 0.0 (0.0-0.2) X10*3/uL Abs Immat Gran (auto) 0.09 H (0.00-0.03) X10*3/uL Absolute Neuts (auto) 7.5 (2.0-8.3) x10*3/uL Absolute Nucleated RBC 0.000 (0.0-0.012) X10*3/uL Nucleated RBC % (auto) 0.0 (0.0-0.2) /100WBC Sodium 138 (135-145) mmol/L Potassium 3.5 (3.3-5.1) mmol/L Chloride 101 (96-108) mmol/L Carbon Dioxide 29 (22-29) mmol/L Anion Gap 12 (12-20) BUN 10 (9-16) mg/dL Creatinine 0.74 (0.5-1.4) mg/dL Estim Creat Clear Calc 98.4 Estimated GFR > 60 Random Glucose 93 (60-115) mg/dL Calcium 9.2 D (8.4-10.2) mg/dL Magnesium 2.2 (1.6-2.6) mg/dL Total Bilirubin 0.7 (0.0-1.0) mg/dL Direct Bilirubin 0.3 (0.0-0.5) mg/dL AST 9 (5-37) U/L ALT 11 (0-40) U/L Alkaline Phosphatase 66 (39-117) U/L Total Protein 7.0 (6.5-8.0) g/dL Albumin 4.1 (3.5-5.0) g/dL Urine Color Yellow Urine Appearance Turbid Urine pH 7.5 (5.0-9.0) Ur Specific [place] 1.015 (1.005-1.025) Urine Protein Negative (Neg-Trace) mg/dL Urine Glucose (UA) Negative (Negative) mg/dL Urine Ketones Negative (Negative) mg/dL Urine Blood Large (3+) H (Negative) Urine Nitrite Negative (Negative) Ur Leukocyte Esterase Negative (Negative) Urine RBC >20 H (0-2) /HPF Urine WBC 0-5 (0-5) /HPF Ur Squamous Epith Cells 0-2 (0-2) /HPF Urine Bacteria None Seen (None Seen) Hyaline Casts 0-2 (0-2) /LPF Radiology Impression Discussion of test interpretation with radiology: I have reviewed the radiologist's reading. Radiologist Impression: My interpretation is in agreement with the radiologist's impression of this imaging study. EXAMINATION: CT ABDOMEN AND PELVIS WITHOUT CONTRAST? CLINICAL INFORMATION: Evaluate for kidney stone? COMPARISON: 09/25/2022? TECHNIQUE: Multidetector volumetric imaging was performed from the superior aspect of the liver through the pubic symphysis. Sagittal and coronal reformatted images were obtained on the technologist's workstation.? This CT examination was performed using dose optimization techniques as appropriate, variously including the following: *Automated exposure control *Adjustment of mA and/or kV according to patient size (this includes techniques or standardized protocols for targeted exams where dose is matched to indication/reason for exam; i.e. extremities or head) *Use of iterative reconstruction technique DLP: 476 mGy-cm FINDINGS: LUNG BASES: ? bilateral basilar atelectasis right greater than left.? LIVER, GALLBLADDER, AND BILIARY TREE: The liver is normal in size, shape, and attenuation. No focal hepatic lesion or biliary ductal dilatation is present. The gallbladder is unremarkable with no evidence of radiopaque gallstones, gallbladder wall thickening, or obvious pericholecystic inflammatory changes.? PANCREAS: Unremarkable.? SPLEEN: Unremarkable.? ADRENAL GLANDS: Unremarkable.? KIDNEYS AND URETERS: Resolved hydronephrosis on the right. There is mild hydronephrosis now seen on the left. This leads up to a 5 mm 5 x 6 mm calculus in the proximal left ureter. Low-density lesion lower pole right kidney could represent a cyst. An ultrasound to confirm. There is also low density structure in the midpole. Again ultrasound would be recommended. BLADDER: Mildly thick-walled bladder.? GASTROINTESTINAL TRACT: The bowel pattern is nonobstructing. The appendix is normal. No free fluid.? ABDOMINAL WALL: No significant hernia is appreciated.? LYMPH NODES: Normal. VASCULAR: Some atherosclerotic changes are noted. Mild ectasia of the right greater than left iliac PELVIC VISCERA: Unremarkable.? OSSEOUS STRUCTURES: Unremarkable.? CT/CT abdomen pelvis wo IV con IMPRESSION: Mild hydronephrosis on the left caused by a 5 x 6 mm calculus in the proximal left ureter. ? Other findings as described above ? Areas of low density in the right kidney. Ultrasound would be recommended to evaluate for cystic change Dictated By: Marciano Vazquez MD Signed By: Electronically signed by Marciano Vazquez MD 11/19/22 1166 Discharge Plan Discharge Clinical Impression: Kidney stone Patient Disposition: Home, Self-Care Instructions: Kidney Stones (ED) Additional Instructions: Follow up with your primary care provider and a urologist. Return to the emergency department immediately if your symptoms worsen or if you develop any dizziness, shortness of breath, difficulty breathing, chest pain, blurry vision, loss of vision, nausea, vomiting, abdominal pain, fever, chills, back pain, or any other complaints. Prescriptions: New tamsulosin [Flomax] 0.4 mg capsule 0.4 mg PO DAILY Qty: 14 0RF prednisone 20 mg tablet 20 mg PO DAILY 7 Days Qty: 7 0RF No Action ondansetron 4 mg tablet,disintegrating 4 mg PO Q6-8H PRN (Reason: nausea and vomiting) Qty: 7 0RF ondansetron 4 mg tablet,disintegrating 4 mg PO Q6-8H PRN (Reason: Nausea And Vomiting) Qty: 10 0RF tamsulosin [Flomax] 0.4 mg capsule 0.4 mg PO DAILY Qty: 14 0RF morphine 15 mg tablet 15 mg PO Q4-6H PRN (Reason: pain) Qty: 14 0RF Rx Instructions: Patient may request partial fill; Partial Fill upon patient request. lisinopril 5 mg tablet 5 mg PO DAILY Qty: 30 2RF Referrals: [facility] [place] [facility] [place] Group] (Call to establish and follow up with a primary care provider. If you already have a primary care provider, please follow up with them. ) [facility] [place] [facility] [Provider Group] (Call to establish and follow up with a primary care provider. If you already have a primary care provider, please follow up with them. ) [facility] [place] [facility] [Provider Group] (Call to establish and follow up with a primary care provider. If you already have a primary care provider, please follow up with them. ) [facility] [place] [facility] [Provider Group] (Call to establish and follow up with a urologist. ) Stand Alone Forms: Work/School Release Interventions: ED Discharge Assessment Last Done: 11/19/22 14:47 Discharge Date/Time: 11/19/22 14:48 Print Language: Syriac
[2022-11-19 11:49] LABS: Alanine Aminotransferase 11 U/L (0-40); Albumin Level 4.1 g/dL (3.5-5.0); Alkaline Phosphatase 66 U/L (39-117); Anion Gap 12 (12-20); Aspartate Amino Transferase 9 U/L (5-37); Bilirubin Direct 0.3 mg/dL (0.0-0.5); Bilirubin Total 0.7 mg/dL (0.0-1.0); Blood Urea Nitrogen 10 mg/dL (9-16); Calcium 9.2 mg/dL (8.4-10.2); Carbon Dioxide 29 mmol/L (22-29); Chloride 101 mmol/L (96-108); Creatinine Clr Calc Pharmacy 98.4; Estimated Glomerular Filt Rate > 60; Glucose Random 93 mg/dL (60-115); Magnesium 2.2 mg/dL (1.6-2.6); Potassium 3.5 mmol/L (3.3-5.1); Sodium 138 mmol/L (135-145)
[2022-11-19 13:14] VITALS: BP 151/82; PULSE 56; RESP 16; O2SAT 98
== END 2022-11-19 14:48 | disposition home or self-care (01) ==
PROVIDERS: Physician Assistant; Emergency Provider Student in an Organized Health Care Education/Training Program
DX: N13.2 Hydronephrosis with renal and ureteral calculous obstruction (principal); I10 Essential (primary) hypertension
CPT/HCPCS: 36415; 74176; 80048; 80076; 81001; 83735; 85025; 99283; 99284

== ENCOUNTER → 2023-03-25 13:36 | Outpatient (BNVA) | payer MEDICAID, SELFPAY | PROVIDERS: PCP Internal Medicine; Visit Provider Nurse Practitioner Family | DX: Z12.11 Encounter for screening for malignant neoplasm of colon (principal); K21.9 Gastro-esophageal reflux disease without esophagitis; R13.10 Dysphagia, unspecified; R10.13 Epigastric pain; K64.9 Unspecified hemorrhoids | CPT/HCPCS: 99202 ==

== ENCOUNTER 2023-08-19 11:46 | Emergency (ER) | payer MEDICAID, SELFPAY ==
[2023-08-19 12:45] VITALS: BP 131/86; PULSE 69; RESP 18; TEMP 36.7; O2SAT 99
--- NOTE | 2023-08-19 12:46 | ED.CHESTPAIN ---
HPI - Chest Pain General Chief Complaint: Chest Pain Stated Complaint: chest pain Time Seen by Provider: 08/19/23 17:54 Source: patient, RN notes reviewed and old records reviewed Mode of arrival: ambulatory History of Present Illness HPI narrative: 57-year-old male with past medical history of substance abuse, depression, HTN, back pain, GERD, presenting to the ED complaining of intermittent substernal chest pain and acute on chronic low back pain x2 days. Admits symptoms are resolved/improved at present. Denies known injury/trauma or fall, SOB, pedal edema, calf tenderness, abdominal pain, nausea/vomiting, incontinence/retention, hematuria MD complaint: chest pain Related Data Home Medications Medication Instructions Recorded Confirmed lisinopril 5 mg tablet 5 mg PO DAILY 03/25/23 03/25/23 Previous Rx's Medication Instructions Recorded bisacodyl 5 mg tablet,delayed 10 mg (2 x 5 mg) PO ONCE 1 day #2 03/25/23 release (Dulcolax (bisacodyl)) tabs omeprazole 20 mg capsule,delayed 20 mg PO DAILY #30 caps 03/25/23 release polyethylene glycol 3350 17 238 g PO ONCE #238 grams 03/25/23 gram/dose oral powder (Miralax) acetaminophen 500 mg tablet 500 mg PO Q6H PRN fever or pain 08/19/23 (Tylenol Extra Strength) #14 tabs lidocaine 5 % topical patch 1 patch topical DAILY PRN pain #30 08/19/23 (Lidoderm) ea naproxen 500 mg tablet 500 mg PO BID PRN pain 10 days #20 08/19/23 tabs Allergies Allergy/AdvReac Type Severity Reaction Status Date / Time No Known Allergies Allergy Unverified 03/25/23 13:51 [No Known Allergies*] Review of Systems Review of Systems: Constitutional: No Fever, No Chills ENT/Mouth: No Ear Pain, No Nasal Congestion, No sore throat, No Rhinorrhea, No Swallowing Difficulty Cardiovascular: + Chest Pain, No SOB Respiratory: No Cough, No Sputum, No Wheezing Gastrointestinal: No Nausea, No Vomiting, No Diarrhea, No Constipation, No Abdominal pain Genitourinary: No Dysuria, No Urinary Frequency, No Hematuria, No Urinary Incontinence/retention, No Flank Pain Musculoskeletal: +back pain, No Myalgias, No Joint Swelling Skin: No Skin Lesions, No rash Neuro: No Weakness, No Numbness, No Paresthesias Yes all other systems are reviewed and are negative Constitutional: Constitutional: Reports as per HPI Neurologic: Denies Sensory deficit (Neuro) [facility] Past Medical History Attestation statement: The following information was validated with the patient. Source: old records reviewed Medical History History of kidney stones History of drug use History of COVID-19 Nicotine dependence, cigarettes, uncomplicated Depression Gastroesophageal reflux disease Hypertension Back pain Family History Family History Sister Breast cancer Social History Social History Household Members: Family Alcohol intake: never Patient Tobacco Use Status: Current everyday Tobacco user Cigarette Packs Per Day: 1 Cigarettes Per Day: 18 Years Smoked: 20 Advance Directives: No Advance Directives Information Provided: No Physical Exam Vital Signs: Vital Signs: Last Vital Signs Temp 98.0 F 08/19/23 12:45 Pulse 69 08/19/23 12:45 Resp 18 08/19/23 12:45 BP 131/86 08/19/23 12:45 Pulse Ox 99 08/19/23 12:45 O2 Del Method Room Air 08/19/23 12:45 BMI result Body Mass Index 30.0 Const: General: cooperative, healthy appearing and no acute distress Orientation/consciousness: patient oriented x3 Limitations: no limitations HEENT: Head: Yes normal to inspection and Yes atraumatic Ears: hearing grossly normal bilaterally General nose exam: Normal external nose present Face and sinus: Yes normal facial exam Eyes: General: appearance normal, both eyes and all related structures EOM: EOMs intact bilaterally Neck: Neck: Yes normal visual inspection and Yes no meningeal signs Chest: Chest palpation & inspection: normal inspection of the chest Resp: Effort & Inspection: normal respiratory effort and no respiratory distress Auscultation: clear to auscultation bilaterally, no crackles and no wheezes Cardio: Rate: regular rate Heart sounds: S1 normal heart sound present and S2 normal heart sound present GI: Inspection: Yes normal to inspection Palpation (GI): Soft to palpation, nontender, no guarding and not rigid Back/Spine/Pelvis: Other: No midline cervical/thoracic/lumbar spinous tenderness/step-off or deformity Skin: Rashes: no rashes Wounds: no wounds Neuro: Other: Strength intact throughout. No saddle anesthesia. Sensation intact to light touch. Neurovascular intact distally General: patient oriented x3, gait normal, tone normal, moves all extremities, no meningeal signs, no focal motor deficits and CN's II-XI intact bilaterally Cranial nerves: Yes CN's II-XII intact bilaterally Gait exam (Neuro): Normal gait present Motor exam (neuro): 5/5 motor strength present throughout Sensory Exam: No Sensory deficit (Neuro) Extrem: General: Yes normal to inspection Course Course Course Narrative: This is an RME: Additional HPI, ROS, PE not included below will be deferred to primary provider. This is a 35-kgbh-ckt-male, with hx of chronic back pain, presenting to the emergency department with complaints of chest pain x 2 days. Reports that the pain woke him up 2 days ago. He states that the pain comes and goes, and is midsternal. No cough, shortness of breath. He endorses feeling sweaty Pain is relieved with lying down. vital signs stable. Plan, EKG, chest x-ray, labs -1755--leukocytosis of 14.9 (appears chronic). Labs otherwise reassuring. Troponin negative XR chest 2V IMPRESSION: Unremarkable chest exam. Results discussed with patient including worrisome signs and symptoms and strict return precautions, and when to return to the emergency department. They verbalized understanding and feel safe for discharge at this time. Medical Decision Making Medical Decision Making MDM Narrative: 57-year-old male with past medical history of substance abuse, depression, HTN, back pain, GERD, presenting to the ED complaining of intermittent substernal chest pain and acute on chronic low back pain x2 days. On exam vital signs stable, NAD, nontoxic appearing, no midline spinous tenderness throat or red flag symptoms. Lungs CTA. Concern for acute on chronic back pain/MSK strain/spasming. Concern for atypical ACS vs costochondritis. Low suspicion for PE, CHF, pneumonia, dissection, myocarditis/pericarditis. Unlikely cauda equina/cord compression or pyelo/epidural abscess Plan: EKG, labs, CXR Please refer to course for remaining clinical decision making, interpretation of labs/imaging results, and discussions with consultants and/or family members. Differential Diagnosis Differential Diagnoses: The differential diagnosis associated with the presentation includes As above Admission/Observation Consideration of admission/observation: Escalation of care including admission/observation considered Lab Data MDM Lab Attestation statement: I reviewed the patient's lab results. 08/19/23 13:01 08/19/23 13:01 Labs: Lab Results 08/19/23 Range/Units 13:01 WBC 14.9 H (4.8-10.8) X10*3/uL RBC 5.34 (4.60-5.80) X10*6/uL Hgb 16.4 (14.0-18.0) g/dl Hct 48.8 (42.0-52.0) % MCV 91.4 (80.0-98.0) fL MCH 30.7 (27.0-33.0) pg MCHC 33.6 (31.0-36.0) g/dl RDW 12.0 (11.0-16.0) % Plt Count 261 (160-400) X10*3/uL MPV 11.0 (9.4-12.4) fL Immature Gran % (Auto) 0.4 (0.0-0.4) % Neut % (Auto) 80.8 H (45-73) % Lymph % (Auto) 12.3 L (20-40) % [place] % (Auto) 6.0 (2-11) % Eos % (Auto) 0.0 (0-4) % Baso % (Auto) 0.5 (0-2) % Lymph # (Auto) 1.8 (1.2-4.9) X10*3/uL [place] # (Auto) 0.9 (0.1-1.2) X10*3/uL Eos # (Auto) 0.0 (0.0-0.4) X10*3/uL Baso # (Auto) 0.1 (0.0-0.2) X10*3/uL Abs Immat Gran (auto) 0.06 H (0.00-0.03) X10*3/uL Absolute Neuts (auto) 12.0 H (2.0-8.3) x10*3/uL Absolute Nucleated RBC 0.000 (0.0-0.012) X10*3/uL Nucleated RBC % (auto) 0.0 (0.0-0.2) /100WBC Sodium 140 (135-145) mmol/L Potassium 4.0 (3.3-5.1) mmol/L Chloride 109 H (96-108) mmol/L Carbon Dioxide 21 L (22-29) mmol/L Anion Gap 14 (12-20) BUN 10 (9-16) mg/dL Creatinine 0.77 (0.5-1.4) mg/dL Estim Creat Clear Calc 100.7 Estimated GFR > 60 Random Glucose 96 (60-115) mg/dL Calcium 9.9 D (8.4-10.2) mg/dL Total Bilirubin 0.5 (0.0-1.0) mg/dL Direct Bilirubin 0.2 (0.0-0.5) mg/dL AST 12 (5-37) U/L ALT 16 (0-40) U/L Alkaline Phosphatase 80 (39-117) U/L Troponin I High Sens < 2.7 (<3.5-35.0) ng/L Total Protein 7.8 (6.5-8.0) g/dL Albumin 4.4 (3.5-5.0) g/dL Independent Interpretation I performed an independent interpretation of an: EKG (My interpretation EKG is normal sinus rhythm at a rate of 74. QTC 408. No significant change when compared to prior. No STEMI) Radiology Impression Discussion of test interpretation with radiology: I have reviewed the radiologist's reading. External Record Review External record reviewed: Inpatient record, Office record, Outpatient record, Prior outpatient labs, Prior outpatient radiology, Primary care record and Outside ED record Tests considered The following testing was considered but not selected: As above Prescription Management I considered prescription management with: Pain Medication Discharge Plan Discharge Clinical Impression: Atypical chest pain, Acute exacerbation of chronic low back pain Patient Disposition: Home, Self-Care Instructions: Acute Low Back Pain (ED), Noncardiac Chest Pain (ED) Additional Instructions: Your blood work and x-ray were reassuring Your back pain is likely musculoskeletal Naproxen as an anti-inflammatory / pain medication, take with food Lidoderm patches are numbing patches, apply to painful area In addition take Tylenol at home If symptoms persist or worsen, pain becomes unbearable, you developed urinary retention or incontinence, or weakness return to the ED Prescriptions: New acetaminophen [Tylenol Extra Strength] 500 mg tablet 500 mg PO Q6H PRN (Reason: fever or pain) Qty: 14 0RF lidocaine [Lidoderm] 5 % adhesive patch,medicated 1 patch topical DAILY MDD remove after 12 hours PRN (Reason: pain) Qty: 30 0RF Rx Instructions: leave on most painful area for up to 12 hrs naproxen 500 mg tablet 500 mg PO BID PRN (Reason: pain) 10 Days Qty: 20 0RF No Action lisinopril 5 mg tablet 5 mg PO DAILY bisacodyl [Dulcolax (bisacodyl)] 5 mg tablet,delayed release (DR/EC) 10 mg PO ONCE 1 Days Qty: 2 0RF Rx Instructions: take 2 tabs at noon the day before your colonoscopy polyethylene glycol 3350 [Miralax] 17 gram/dose powder 238 g PO ONCE Qty: 238 0RF Rx Instructions: As directed by gastroenterology department at [facility] omeprazole 20 mg capsule,delayed release(DR/EC) 20 mg PO DAILY Qty: 30 3RF Referrals: [facility] [place] [facility] [Provider Group] (As needed) Physician,Unknown J [Primary Care Provider] - Stand Alone Forms: Work/School Release
[2023-08-19 13:44] LABS: Alanine Aminotransferase 16 U/L (0-40); Albumin Level 4.4 g/dL (3.5-5.0); Alkaline Phosphatase 80 U/L (39-117); Anion Gap 14 (12-20); Aspartate Amino Transferase 12 U/L (5-37); Bilirubin Direct 0.2 mg/dL (0.0-0.5); Bilirubin Total 0.5 mg/dL (0.0-1.0); Blood Urea Nitrogen 10 mg/dL (9-16); Calcium 9.9 mg/dL (8.4-10.2); Carbon Dioxide 21 mmol/L (22-29); Chloride 109 mmol/L (96-108); Creatinine Clr Calc Pharmacy 100.7; Estimated Glomerular Filt Rate > 60; Glucose Random 96 mg/dL (60-115); Sodium 140 mmol/L (135-145); Total Protein 7.8 g/dL (6.5-8.0)
[2023-08-19 18:33] VITALS: BP 133/80; PULSE 56; RESP 18; TEMP 36.6; O2SAT 98
== END 2023-08-19 18:36 | disposition home or self-care (01) ==
PROVIDERS: Physician Assistant Medical; Emergency Provider Emergency Medicine Emergency Medical Services
DX: R07.89 Other chest pain (principal); M54.50 Low back pain, unspecified; I10 Essential (primary) hypertension; F17.210 Nicotine dependence, cigarettes, uncomplicated; Z71.6 Tobacco abuse counseling; Z79.899 Other long term (current) drug therapy
CPT/HCPCS: 36415; 71046; 80048; 80076; 84484; 85025; 93005; 99283

== ENCOUNTER 2024-10-05 12:37 | Emergency (ER) | payer SELFPAY ==
[2024-10-05 13:00] VITALS: BP 123/88; PULSE 94; RESP 16; TEMP 37; O2SAT 95; BMI 33.3
--- NOTE | 2024-10-05 13:05 | ED.GENADULT ---
HPI - General Adult General Chief complaint: Upper Respiratory Symptoms Stated complaint: Fever Sore Throat Source: patient and painter maintenance Mode of arrival: ambulatory Limitations: language barrier History of Present Illness ED Provider: Lucía HPI narrative: Patient is a 58 year old male presenting with complaint of sore throat, subjective fever for 3-4 days. Also complains of body aches, nausea. Denies vomiting or diarrhea. No know sick contacts. MD complaint: fever, sore throat Onset (ago): day(s) Treatments prior to arrival: none Related Data Home Medications ?Medication ?Instructions ?Recorded ?Confirmed lisinopril 5 mg tablet 5 mg PO DAILY 03/25/23 03/25/23 Previous Rx's ?Medication ?Instructions ?Recorded bisacodyl 5 mg tablet,delayed 10 mg (2 x 5 mg) PO ONCE 1 day #2 03/25/23 release (Dulcolax (bisacodyl)) tabs omeprazole 20 mg capsule,delayed 20 mg PO DAILY #30 caps 03/25/23 release polyethylene glycol 3350 17 238 g PO ONCE #238 grams 03/25/23 gram/dose oral powder (Miralax) acetaminophen 500 mg tablet 500 mg PO Q6H PRN fever or pain 08/19/23 (Tylenol Extra Strength) #14 tabs lidocaine 5 % topical patch 1 patch topical DAILY PRN pain #30 08/19/23 (Lidoderm) ea naproxen 500 mg tablet 500 mg PO BID PRN pain 10 days #20 08/19/23 tabs Allergies Allergy/AdvReac Type Severity Reaction Status Date / Time No Known Allergies Allergy Unverified 10/05/24 13:05 [No Known Allergies*] Review of Systems Review of Systems: As per HPI. Yes all other systems are reviewed and are negative Constitutional: Constitutional: Reports as per HPI [facility] Past Medical History Medical History History of kidney stones History of drug use History of COVID-19 Nicotine dependence, cigarettes, uncomplicated Depression Gastroesophageal reflux disease Hypertension Back pain Family History Family History Sister Breast cancer Social History Social History Household Members: Family Alcohol intake: never Patient Tobacco Use Status: Current everyday Tobacco user Cigarette Packs Per Day: 1 Cigarettes Per Day: 18 Years Smoked: 20 Advance Directives: No Advance Directives Information Provided: Yes Physical Exam ED Vital Signs: Vital Signs - 24 hr 10/05/24 13:00 Temperature 98.6 F Pulse Rate 94 Respiratory Rate 16 Blood Pressure 123/88 Pulse Oximetry 95 Oxygen Delivery Method Room Air BMI result Body Mass Index 33.3 Vital signs have been reviewed and appear to be correct. Blood pressure normal. Heart rate normal. Respiratory rate normal. Temperature normal. Oxygen saturation normal. Const General: cooperative, healthy appearing and no acute distress Orientation/consciousness: oriented to person, oriented to place, oriented to time and patient oriented x3 Limitations: no limitations HENMT Head: Yes normocephalic and Yes atraumatic Ears: external ears normal General nose exam: Normal external nose present Face and sinus: Yes face symmetric Mouth: oropharynx normal and moist mucous membranes Throat: Yes uvula midline Eyes Pupils: Equal, round and reactive pupils present Neck Neck: Yes normal visual inspection and Yes supple Resp Effort & Inspection: normal respiratory effort and able to speak in complete sentences Auscultation: clear to auscultation bilaterally Cardio Rate: regular rate Rhythm: regular rhythm Heart sounds: S1 normal heart sound present and S2 normal heart sound present GI Palpation (GI): Soft to palpation and nontender Auscultation: normoactive bowel sounds General: Yes no CVA tenderness Back/Spine/Pelvis Back: no CVA tenderness Skin General skin exam: elasticity normal and turgor normal Neuro General: oriented to person, oriented to place, oriented to time, patient oriented x3, moves all extremities, no focal motor deficits and CN's II-XI intact bilaterally Cranial nerves: Yes Equal, round and reactive pupils present Cognition (Neuro): normal cognition Extrem General: Yes full ROM, Yes no pedal edema and Yes no calf tenderness Psych Mental Status: mental status grossly normal Affect: normal affect Thought process: Normal thought process present Course Course Course Narrative: This is a rapid medical exam performed by Mauricio Castrejon NP: Additional HPI, ROS, PE not included below will be deferred to primary provider. Patient is a 58 year old male presenting with complaint of sore throat, fever for 3-4 days. Plan: strep and viral swabs Medical Decision Making Medical Decision Making MDM Narrative: Patient is a 58 year old male presenting with complaint of sore throat, subjective fever for 3-4 days. On exam patient is awake, A+Ox3, VS WNL, afebrile, normal neurological exam without focal deficits, physical exam findings as above. Given reported symptoms and physical exam findings, initial differential includes viral illness, covid, flu. Viral serology notable for influenza A. Patient updated on results and all questions answered. Advised Tylenol, ibuprofen, rest, fluids. Return precautions discussed. Follow up with PCP. Patient verbalized understanding of and agreement with plan. Differential Diagnosis Differential Diagnoses: The differential diagnosis associated with the presentation includes As per [facility] Lab Data [facility] Lab Attestation statement: I reviewed the patient's lab results. As per [facility] Labs: Lab Results 10/05/24 Range/Units 13:32 Influenza Type A (PCR) POSITIVE A (Negative) Influenza Type B (PCR) NEGATIVE (Negative) RSV RNA Qual (PCR) NEGATIVE (Negative) SARS-CoV-2 RNA (RT-PCR) NEGATIVE (Negative) S. pyogenes GrpA LASHAUN Negative (Negative) External Record Review External record reviewed: Inpatient record, Office record and Outpatient record Discharge Plan Discharge Clinical Impression: Influenza Patient Disposition: Home, Self-Care Instructions: Influenza (DC), Flu Shot (Vaccine) for Adults (ED) Additional Instructions: You were evaluated in the emergency department today for sore throat, fever. Your flu test was positive. You should isolate at home for another 4 days and continue to wear mask while symptomatic after that. Your symptoms should resolve over time with rest and fluids. You can take 650 mg Tylenol or 600 mg ibuprofen every 6 hours as needed for fever or pain. Please follow-up with your primary care provider for any ongoing symptoms. Return to the emergency department if you develop worsening pain, fever not controlled with Tylenol and ibuprofen, chest pain, dizziness or lightheadedness, or any other concerning symptoms. Prescriptions: No Action acetaminophen [Tylenol Extra Strength] 500 mg tablet 500 mg PO Q6H PRN (Reason: fever or pain) Qty: 14 0RF lidocaine [Lidoderm] 5 % adhesive patch,medicated 1 patch topical DAILY MDD remove after 12 hours PRN (Reason: pain) Qty: 30 0RF Rx Instructions: leave on most painful area for up to 12 hrs naproxen 500 mg tablet 500 mg PO BID PRN (Reason: pain) 10 Days Qty: 20 0RF lisinopril 5 mg tablet 5 mg PO DAILY bisacodyl [Dulcolax (bisacodyl)] 5 mg tablet,delayed release (DR/EC) 10 mg PO ONCE 1 Days Qty: 2 0RF Rx Instructions: take 2 tabs at noon the day before your colonoscopy polyethylene glycol 3350 [Miralax] 17 gram/dose powder 238 g PO ONCE Qty: 238 0RF Rx Instructions: As directed by gastroenterology department at [facility] omeprazole 20 mg capsule,delayed release(DR/EC) 20 mg PO DAILY Qty: 30 3RF Stand Alone Forms: Work/School Release Print Language: Turkish
[2024-10-05 13:54] LABS: IDNOW Serial# 08D9AD1C; Strep A Nucleic Acid Negative (Negative)
[2024-10-05 14:34] LABS: Influenza A PCR POSITIVE (Negative); Influenza B PCR NEGATIVE (Negative); Resp Syncy Virus RNA Qual PCR NEGATIVE (Negative); SARS COV2 PCR INHOUSE NEGATIVE (Negative)
[2024-10-05 14:48] VITALS: BP 127/89; PULSE 96; RESP 18; TEMP 37.6; O2SAT 97
[2024-10-05] MEDS: Ibuprofen 600 MG TABLET PO (14:51)
[2024-10-05] MEDS: Acetaminophen 325 MG TABLET 650 MG PO (14:51)
[2024-10-05 14:53] VITALS: BP 127/89; PULSE 96; RESP 18; TEMP 37.6; O2SAT 97
== END 2024-10-05 14:54 | disposition home or self-care (01) ==
PROVIDERS: Registered Nurse Emergency; Emergency Provider Emergency Medicine
DX: J11.1 Influenza due to unidentified influenza virus with other respiratory manifestations (principal); R50.9 Fever, unspecified; M79.10 Myalgia, unspecified site; R11.0 Nausea; Z03.818 Encounter for observation for suspected exposure to other biological agents ruled out; Z79.899 Other long term (current) drug therapy
CPT/HCPCS: 0241U; 87651; 99283